=== PATIENT | female | born 1930 | race Caucasian/White ===

== ENCOUNTER 2016-11-08 19:15 | Inpatient (IN) | payer MEDICARE, OTHER ==
--- NOTE | ~2016-11-08 | CT71 ---
[facility] A Service of [facility] & [facility] RADIOLOGY TEXT RESULTS PATIENT: CONSTANTINE LOVE LOCATION: [facility] 312- : [birth year] UNIT #: [id number] AGE: [address]: Vinicio Ivy MD SEX: F ORDER DR: [id number] [facility] [address] [place], [place] [address] [id number] I MR#: [id number] Acc #: [id number] NAME: CONSTANTINE LOVE. : 1930 SEX: F STUDY DATE/TIME: 11/08/2016 18:48 [facility] ROOM: [facility] STUDY DESCRIPTION: CT Head Wo Contrast Attending Physician: Vinicio Ivy M.D. Ordering Physician: Matthew Ward M.D. Primary Care Physician: Anca Nichols M.D. MEDICAL IMAGING REPORT This report is preliminary unless electronic signature is present EXAM CT head 11/08/2016 HISTORY Fall 2 days ago. Tremors. Increasing since Tuesday. Patient did fall and hit right side of face. TECHNIQUE This CT examination was performed with one or more of the following radiation dose reduction techniques: automatic exposure control, adjustment of mA and/or kV according to patient size, and iterative reconstruction. FINDINGS CT head performed skull base through vertex without intravenous contrast. Comparison study 08/03/2015. The brainstem is unremarkable. The cerebellum and cerebral hemispheres show overall preservation of cardoso matter - white matter differentiation. There are moderately extensive subcortical periventricular and deep white matter tract hypodensities bilaterally most consistent with sequelae of chronic microvascular ischemia given patient age and statistics. More localized chronic white matter infarct in the anterior right perdue radiata. Stable. The midline structures are nondisplaced. The ventricles, cisterns and sulci are within normal limits of size and contour for a patient of this age. The basal ganglia show no acute abnormality. No intra- or extraaxial mass effect or abnormal intracranial fluid collection. The patient has cavernous carotid and distal vertebral arterial calcifications. Intraorbital soft tissues unremarkable. Visualized paranasal sinuses and mastoid air cells show mild mucosal thickening ethmoid air cells and right sphenoid sinus. No air-fluid levels to suggest acute sinusitis. No fracture. STS. [facility] A Service of [facility] & [facility] RADIOLOGY TEXT RESULTS PATIENT: CONSTANTINE LOVE LOCATION: [facility] 312-01 : [birth year] UNIT #: [id number] AGE: [address]: Vinicio Ivy MD SEX: F ORDER DR: IMPRESSION 1. No clearly acute abnormality is seen in the brain. If the patient has ongoing neurologic symptoms, consider follow up imaging, preferably with MRI if the patient is a candidate. 2. Periventricular deep white matter tract and subcortical hypodensities most consistent with sequelae of chronic microvascular ischemia based upon the patient's age and statistics. Similar appearance on prior study. More localized chronic white matter infarct in the anterior aspect right perdue radiata also stable. 3. Vascular calcifications. 4. Mild mucosal thickening in some ethmoid air cells and in right sphenoid sinus. No air-fluid levels to suggest acute sinusitis. Dictated by... Mario Bullock M.D. THIS IS AN ELECTRONICALLY VERIFIED REPORT Mario Bullock M.D. at 11/09/2016 5:43 PM IVELISSE/terrell TD: 11/09/2016 08:55 JOB #: [id number] MEDICAL IMAGING REPORT COPY
--- NOTE | ~2016-11-08 | CR181 ---
[facility] A Service of [facility] & [facility] RADIOLOGY TEXT RESULTS PATIENT: CONSTANTINE LOVE LOCATION: [facility] - : [birth year] UNIT #: [id number] AGE: [address]: Vinicio Ivy MD SEX: F ORDER DR: [id number] [facility] [address] [place], [place] [address] [id number] I MR#: [id number] Acc #: [id number] NAME: CONSTANTINE LOVE. : 1930 SEX: F STUDY DATE/TIME: 11/08/2016 19:58 UNIT: [address] ROOM: [facility] STUDY DESCRIPTION: CR Lumbar Spine 2 or 3 Views Attending Physician: Vinicio Ivy M.D. Ordering Physician: Ed Doctor [id number] [facility] Primary Care Physician: Anca Nichols M.D. MEDICAL IMAGING REPORT This report is preliminary unless electronic signature is present EXAM Lumbar spine 3 views HISTORY Low-back pain after a fall 2 days ago. FINDINGS Mild right upper lumbar and lower thoracic curve. Moderately severe chronic compression fractures of the T11 and T12 vertebral bodies with anterior wedging, stable compared to x-ray 08/02/2015. Mild multilevel degenerative disc space narrowing from L2-3 to L5-S1. [id number] multilevel degenerative and hypertrophic changes greater in the lower lumbar facet joints. IMPRESSION 1. No acute findings. Multilevel degenerative changes in the lumbar spine, greater in the lower lumbar facet joints. 2. Chronic anterior wedge compression fractures of T11 and T12 are stable compared to 08/02/2015. No acute finding. Dictated by... Shabbir Sandoval M.D. THIS IS AN ELECTRONICALLY VERIFIED REPORT Shabbir Sandoval M.D. at 11/09/2016 3:33 PM Lavon TD: 11/09/2016 09:28 JOB #: [id number] MEDICAL IMAGING REPORT COPY
--- NOTE | ~2016-11-08 | CR230 ---
[facility] A Service of [facility] RADIOLOGY TEXT RESULTS PATIENT: CONSTANTINE LOVE LOCATION: [facility] : [birth year] UNIT #: [id number] AGE: [address]: Vinicio Ivy MD SEX: F ORDER DR: [id number] [place] [address] [facility] [place], [place] [address] [id number] I MR#: [id number] Acc #: [id number] NAME: CONSTANTINE LOVE. : 1930 SEX: F STUDY DATE/TIME: 11/08/2016 19:52 UNIT: [address] ROOM: [facility] STUDY DESCRIPTION: CR Shoulder Min 2 View Rt Attending Physician: Vinicio Ivy M.D. Ordering Physician: Moi Carter M.D. Primary Care Physician: Anca Nichols M.D. MEDICAL IMAGING REPORT This report is preliminary unless electronic signature is present EXAM 3 views of the right shoulder. DATE 11/08/2016 HISTORY 85-year-old female with right shoulder and back pain mainly in the lower back after falling 2 days ago. COMPARISON None FINDINGS There is an obliquely oriented, nondisplaced fracture of the distal third of the right clavicle shaft. There is moderately advanced osteoarthritic change of the glenohumeral joint with joint space narrowing and what appears to be a calcified loose body at the inferior margin of the glenohumeral joint. No acromioclavicular or coracoclavicular separation is evident. Surgical clips are present within the right axilla. Imaged right ribs appear intact. IMPRESSION 1. Suspected nondisplaced fracture of the distal third of the right clavicle. 2. Moderately advanced osteoarthritic type change of the right shoulder joint with suspected small calcified loose body at the inferior margin of the joint space. [facility] A Service [facility] RADIOLOGY TEXT RESULTS PATIENT: CONSTANTINE LOVE LOCATION: [facility] : [birth year] UNIT #: [id number] AGE: [address]: Vinicio Ivy MD SEX: F ORDER DR: Dictated by... Aisha Kim M.D. THIS IS AN ELECTRONICALLY VERIFIED REPORT Aisha Kim M.D. at 11/09/2016 2:09 PM KARENA/karen TD: 11/09/2016 09:14 JOB #: [id number] MEDICAL IMAGING REPORT COPY
--- NOTE | ~2016-11-08 | HP ---
Unit #: [id number] #: [id number] Patient: CONSTANTINE LOVE [id number] [address] [place], [place] [address] [id number] I MR#: [id number] NAME: CONSTANTNIE LOVE. ROOM: 6[address]15 Age: 85 Sex: F Admission Date: 11/08/2016 : 1930 Attending Physician: Neena Morales M.D. Primary Care Physician: Anca Nichols M.D. HISTORY AND PHYSICAL CHIEF COMPLAINT Left leg cellulitis, fall with right clavicle fracture, hypocalcemia. HISTORY This 85-year-old female with CAD, PAF, dementia, chronic kidney disease, was transferred from the halfway for tremors, fall, and left leg pain. The patient fell at the halfway a couple of days ago complaining of increasing pain in the right clavicle. She has been dizzy recently, increasing shaking right arm. Currently is being treated for possible psoriasis of the distal left leg but has since developed increasing redness and more recently a fever. She presented to this emergency department where he distal left leg looks to be somewhat cellulitic. X-ray demonstrate a right clavicle fracture, which is nondisplaced. Labs are notable for a chronic kidney disease, and also hypocalcemia. I have asked that the CMP be recollected as the calcium was only 5.4 with an albumin of 2.6. In the ER she was given morphine, Zofran. She was noted to have a fever, and given a dose of IV clindamycin. Plans are to give calcium gluconate if calcium truly is low. PAST MEDICAL HISTORY 1. CAD with ejection fraction of 60%, mild MR, mild to moderate TR with moderate aortic stenosis and right ventricular systolic pressures of 30 to 40 mmHg. The patient is status post PCI and stent. She has a history of paroxysmal atrial fibrillation on amiodarone. 2. Chronic kidney disease with previous BUN of 33, creatinine of 2 on 07/2015. 3. Hypertension. 4. Previous CVA and TIA. 5. History of right vertebral artery stenosis. 6. Status post right mastectomy for breast cancer. 7. Hypothyroidism. 8. Dementia. 9. Anemia. 10. Essential tremor. 11. Frequent UTI. 12. Hysterectomy. 13. Appendectomy. 14. Thyroid surgery. 15. Cholecystectomy. 16. Tracheostomy in the past secondary to a hematoma while on Coumadin. ALLERGIES Codeine. Unit #: [id number] #: [id number] Patient: CONSTANTINE LOVE RESIDENTIAL MEDICATIONS B12 1,000 mcg daily; Nakita-Colace 8.6/5 two tablets q. a.m.; micro-K 10 mEq daily; aspirin 81 mg daily; Lasix 20 mg daily; Imdur 60 mg daily; amiodarone 100 mg daily; Plavix 75 mg daily; Protonix 40 mg daily; MiraLAX daily; Bumex 0.5 mg daily; Aricept 10 mg daily; Zoloft 50 mg daily; Synthroid 0.1 mg daily; Namenda 10 mg b.i.d.; Ocuvite b.i.d.; Lopressor 25 mg t.i.d.; Dilaudid 1 mg 4 times a day and p.r.n.; melatonin 3 mg q.h.s.; nitroglycerin p.r.n.; Zofran 4 mg t.i.d. p.r.n.; Tylenol p.r.n.; Dilaudid; MOM; Antivert; Remeron 15 mg q.h.s. FAMILY HISTORY Noncontributory given patient's age. SOCIAL HISTORY The patient lives at halfway under the care of Dr. Benavides. Stopped smoking 35 years ago and does not drink alcohol. REVIEW OF SYSTEMS Difficult to obtain as patient herself is a poor historian due to dementia. PHYSICAL EXAMINATION GENERAL: 85-year-old pleasantly confused, mildly obese female who looks to be somewhat uncomfortable. VITAL SIGNS: Temperature 98.6, pulse 89, respirations 14, blood pressure 163/60, O2 saturation 97% on room air. HEENT: Eyes - PERRLA. Extraocular muscles are intact. Pharynx is benign. Bruise over the right face. NECK: Supple without adenopathy or thyromegaly. CHEST: Clear. CARDIAC: Normal S1 and S2 with a soft systolic murmur best heard at the upper sternal border. ABDOMEN: Bowel sounds are present. No hepatosplenomegaly, tenderness, or masses. EXTREMITIES: Notable for peeling of the skin over the distal left lower extremity and foot with erythema and some swelling of the distal left lower extremity and foot. There is pain with movement of the right shoulder. NEUROLOGIC: Patient is pleasantly confused. Her cranial nerves are intact. She has equal strength throughout but is very weak on exam and needs help just to turn over. She does have essential and rest tremor worse on the right. DIAGNOSTIC STUDIES ADMISSION LABS: Hematocrit is 26.2 down from 34.5 two years ago, normal white count and platelet count. SMA 12 - glucose 160, BUN 46, creatinine 2.3, up from a BUN of 33, creatinine of 2 two years ago, calcium is 5.4 with an albumin of 2.6, this currently is being rechecked. AST is 60, alk phos 124, lactic acid is normal. I have asked for a magnesium level to also be drawn. Urinalysis - 2-5 red cells, 5-10 white cells, 4+ bacteria, 1+ leukocyte esterase. CARDIOLOGY STUDIES: EKG - paced rhythm rate 78. IMAGING STUDIES: Head CT - no acute disease, small vessel ischemic disease noted, stable right-sided infarct. Unit #: [id number] #: [id number] Patient: CONSTANTINE LOVE X-rays of the right shoulder show a nondisplaced right clavicle fracture, DJD of the right shoulder. X-rays of the lumbar spine and T-spine, no acute disease, old compression fractures, which are stable noted. ASSESSMENT 1. Probable left lower extremity cellulitis. 2. Fall with right clavicle fracture. 3. Possible hypocalcemia, again I am awaiting repeat labs. 4. Chronic kidney disease. 5. CAD with normal LV function, status post PCI and stents, status post permanent pacemaker for sick sinus syndrome on amiodarone. 6. Hypertension. 7. Prior CVA and TIA. 8. Right mastectomy for breast cancer. 9. Hypothyroidism. 10. Dementia. 11. Essential and rest tremor particularly on the right. 12. Anemia with MCV borderline low at 82.1. 13. Generalized pruritus on Dilaudid. PLANS 1. Recheck labs, compare if calcemia truly is low, will go ahead and supplement. I have asked for a magnesium level to also be drawn. Will workup further depending on above. 2. Sling and swath. 3. Plan TSH and free T4. 4. Change Dilaudid to oxycodone given pruritus and will order some low dose morphine p.r.n. 5. Unasyn and Bactroban ointment. Will ask wound nurse to see in the morning. 6. DVT prophylaxis and obtain Doppler of the lower extremities. 7. Patient is a DNR per her halfway papers. 8. Obtain thyroid function test. Dictated by Lalo Plaza/erasmo TD: 11/09/2016 05:47 JOB #: [id number] CC: Tyrell Benavides M.D. HISTORY AND PHYSICAL X Neena Morales MD HISTORY AND PHYSICAL
--- NOTE | ~2016-11-08 | EKG ---
PATIENT: CONSTANTINE LOVE UNIT #: [id number] Ventricular Rate: 78 BPM Atrial Rate: 78 BPM P-R Interval: 200 ms QRS Duration: 118 ms Q-T Interval: 422 ms QTC Calculation(Bezet): 481 ms P [place]: 76 degrees Calculated R [place]: -21 degrees Calculated T [place]: 7 degrees Diagnosis Line: Atrial-paced rhythm Diagnosis Line: Incomplete right bundle branch block Diagnosis Line: Abnormal ECG Diagnosis Line: When compared with ECG of 02-AUG-2015 11:52, Diagnosis Line: Incomplete right bundle branch block has replaced Diagnosis Line: Right bundle branch block Diagnosis Line: Confirmed by VIRGINIA GARCIA MD ([id number]) on Diagnosis Line: 11/09/2016 4:12:18 PM INTERPRETING MD: RADHA GONZÁLES
--- NOTE | ~2016-11-08 | CR243 ---
[facility] A Service of [facility] RADIOLOGY TEXT RESULTS PATIENT: CONSTANTINE LOVE LOCATION: [facility] 312- : [birth year] UNIT #: [id number] AGE: [address]: Vinicio Ivy MD SEX: F ORDER DR: [id number] [facility] [address] [place], [place] [address] [id number] I MR#: [id number] Acc #: [id number] NAME: CONSTANTINE LOVE. : 1930 SEX: F STUDY DATE/TIME: 11/08/2016 19:54 UNIT: [address] ROOM: [facility] STUDY DESCRIPTION: CR Thoracic Spine 3 Views Attending Physician: Vinicio Ivy M.D. Ordering Physician: Ed Doctor [id number] [facility] Primary Care Physician: Anca Nichols M.D. MEDICAL IMAGING REPORT This report is preliminary unless electronic signature is present EXAM 3 view of the thoracic spine, 11/08/2016 HISTORY 85-year-old female complains of right shoulder and back pain after falling 2 days ago. COMPARISON Thoracic spine radiographs, 08/02/2015 FINDINGS Chronic-appearing compression deformities of T11 and T12, mild compression deformities superior endplate of T4, unchanged from 08/02/2015. Advanced osteopenic changes limit sensitivity for detection of subtle nondisplaced fracture. However, no acute displaced fracture is identified. No subluxation. Calcification within the thoracic aorta. IMPRESSION 1. Chronic-appearing compression deformities of T4, T11 and T12. No acute thoracic spine fracture or subluxation. 2. Advanced osteopenia. Dictated by... Aisha Kim M.D. THIS IS AN ELECTRONICALLY VERIFIED REPORT Aisha Kim M.D. at 11/09/2016 2:09 PM Christiane TD: 11/09/2016 09:13 JOB #: [id number] MEDICAL IMAGING REPORT [facility] A Service [facility] RADIOLOGY TEXT RESULTS PATIENT: CONSTANTINE LOVE LOCATION: [facility] 312-01 : [birth year] UNIT #: [id number] AGE: [address]: Vinicio Ivy MD SEX: F ORDER DR: COPY
--- NOTE | ~2016-11-08 | TOC ---
Unit #: [id number] #: [id number] Patient: CONSTANTINE LOVE [id number] [address] [address] [id number] I MR#: [id number] NAME: CONSTANTINE LOVE. ROOM: 312 Age: 85 Sex: F Admission Date: 11/08/2016 : 1930 Attending Physician: Vinicio Ivy M.D. Primary Care Physician: Anca Nichols M.D. TRANSFER OF CARE SUMMARY WORKING DIAGNOSES 1. Right clavicle fracture following a fall. 2. Lower extremity cellulitis. 3. Urinary tract infection with Gram negative dominga Klebsiella, sensitive to Levaquin. The other organism sensitivity identification is still pending. 4. Hypocalcemia. Replaced. Rechecking. 5. Metabolic acidosis. 6. Acute on chronic stage 3 kidney injury. Possibly following the fall. She does have elevated CPK of greater than 2000. 7. History of coronary artery disease. 8. History of sick sinus syndrome. 9. Iron deficiency anemia. 10. Breast cancer. 11. Hypothyroidism. 12. Generalized pruritus. 13. DNR/DNI code status. PROCEDURES PERFORMED None. DIAGNOSTIC DATA IMAGING: CT of the head on 11/08/2016 with impression of no clearly acute abnormality seen in the brain. Periventricular deep white matter tract and subcortical hypodensities most consistent with sequelae of chronic microvascular ischemia based upon the patient's age and statistics. Similar appearance on prior study. More localized chronic white matter infarct in the anterior aspect right perdue radiata also stable. Vascular calcifications. Mild mucosal thickening in some ethmoid air cells and in right sphenoid sinus. No air-fluid levels to suggest acute sinusitis. X-ray of the shoulder with findings suspected nondisplaced fracture of the distal third of the right clavicle. Moderately advanced osteoarthritic type change of the right shoulder joint with suspected small calcified loose body at the inferior margin of the joint space. X-ray of thoracic spine, impression of chronic-appearing compression deformities of T4, T11 and T12. No acute thoracic spine fracture or subluxation. Advanced osteopenia. X-ray of lumbar spine, 2 views, no acute findings. Multilevel degenerative changes in the lumbar spine, greater in the lower lumbar facet joints. Chronic anterior wedge compression fractures of T11 and T12 are stable compared to 08/02/2015. Unit #: [id number] #: [id number] Patient: CONSTANTINE LOVE Ultrasound of the lower extremities, impression of negative examination. No evidence of bilateral lower extremity deep venous thrombosis. Chest x-ray on 11/11/2016 with impression of no acute cardiopulmonary findings or significant interval change. LABORATORY: Today's labs include BMP with glucose 141, BUN 51, creatinine 3.1, sodium 130, potassium 4.0, chloride 103, CO2 21, calcium 6.1, magnesium 2.1. Total protein 5.6, albumin 2.1, total bilirubin 0.3. CBC with white blood cell count 8.4, RBC 2.75, hemoglobin 7.2, hematocrit 22.9, MCV 83.3, MCH 26.1, MCHC 31.3, RDW 17.2, platelets 291, MPV 8.8. HOSPITAL COURSE The patient is an 85-year-old female with a past medical history of coronary artery disease, paroxysmal atrial fibrillation, dementia and chronic kidney disease. She was transferred from [facility] due to tremors, fall and left leg pain. The patient fell at the [facility] a couple of days ago and has complained of increasing pain of the right clavicle. She had been dizzy recently and has had increasing shaking of the right arm. Currently she is being treated for possible psoriasis of the distal left leg, but has developed increasing redness and more recently fever. She was brought to the emergency department where the distal left leg looks to be somewhat cellulitic. X-ray demonstrated a right clavicle fracture which is nondisplaced. Labs are notable for chronic kidney disease and also hypocalcemia. She was admitted for pain control and for treatment of the left lower leg cellulitis. She was started on antibiotics with Unasyn, both for the left lower leg cellulitis and also urinary tract infection. Urinalysis was done and to date urine culture is present with Klebsiella and a second organism of Gram negative rods. The Klebsiella is sensitive to Levaquin, but the second gram negative dominga identification and sensitivity is still pending. The patient is stable with regard to the infection of the urinary tract infection and cellulitis. The lower extremity cellulitis has done very well. The redness has resolved and we are continuing with wound care at this time. She has no evidence of elevated white blood count, nor does she have a fever. At this time, throughout the course of her hospitalization, we have noticed that the patient is becoming more acidotic and she also has severe hypocalcemia. We are replacing the calcium both orally and through IV. We are checking for parathyroid hormone level. At this time it has been sent out and the results are still pending. As she becomes more and more acidotic, we have also noted some increase rise in her creatinine. Nephrology was asked to see her in consultation. When assessed, her CPK was much elevated at 2300. We will follow nephrology's lead in correcting this patient's acute kidney injury. Once that is stable she may be transferred back to [facility] under the care of Dr. Benavides to continue with her stay there for clarification. When I reviewed the patient's record from [facility], it was stated that the patient does have a do not intubate and do not resuscitate code status, which her son has confirmed. Her son is Vu Antonio, who is her [id number]. He has confirmed this, although there were also records that show the patient is under powerless care there. When I asked Mr. Antonio about this, he tells me that two years ago that was the wish at that time, but at this time he does wish the patient be continued full aggressive care, but if the patient does become septic or have any respiratory or cardiac arrest we will take no <__IM_1: __> (1)__10:13 and let her pass away from a natural . Unit #: [id number] #: [id number] Patient: CONSTANTINE LOVE CURRENT MEDICATIONS 1. Vitamin D 2000 units p.o. daily. 2. Combivent nebulized q.i.d. 3. Food with sodium bicarbonate per nephrology recommendations. 4. Calcitrol 0.25 mcg p.o. daily. 5. Remeron 50 mg p.o. at bedtime. 6. Melatonin 3 mg p.o. at bedtime. 7. Calcium plus D 500 mg p.o. t.i.d. 8. Multivitamin 1 tablet p.o. daily. 9. Aricept 10 mg p.o. daily. 10. Protonix 40 mg p.o. daily. 11. Plavix 75 mg p.o. 12. Cordarone <__IM_2: __> (2)_11:22 daily. 13. Imdur 60 mg p.o. daily. 14. Aspirin 81 mg p.o. daily. 15. Vitamin B12 1000 mcg p.o. daily. 16. Namenda 10 mg p.o. daily. 17. Zoloft 50 mg p.o. in the morning. 18. Senokot 1 tablet p.o. daily. 19. Florastor 250 mg p.o. b.i.d. 20. Bactroban cream to the left leg applied topically b.i.d. 21. Lopressor 25 mg p.o. t.i.d. 22. Synthroid 0.1 mg p.o. daily. 23. Meclizine 25 mg p.o. p.r.n. dizziness. 24. Milk of Magnesia p.r.n. daily. 25. Tylenol 500 mg q.6 h. p.r.n. fever or pain. 26. Nitroglycerin 0.4 mg sublingually p.r.n. chest pain. 27. MiraLAX 17 mg p.o. daily. 28. Lovenox subcutaneous prophylactically 30 mg p.o. daily. 29. Morphine 2 mg IV q.6 h. p.r.n. severe pain. 30. Hydroxyzine 10 mg p.o. t.i.d. 31. Zofran 4 mg IV q.6 h. p.r.n. nausea or vomiting. 32. Roxicodone 10 mg p.o. b.i.d. 33. Vitamin D 50,000 units p.o. daily for 3 doses. Due to her acute kidney injury I have discontinued the Bumex and I will discontinue the potassium. Dictated by... Eh Petty PA-C for Lalo Juárez TD: 11/12/2016 15:23 JOB #: [id number] TRANSFER OF CARE SUMMARY X X TRANSFER OF CARE SUMMARY
--- NOTE | ~2016-11-08 | CR72 ---
[facility] A Service [facility] RADIOLOGY TEXT RESULTS PATIENT: CONSTANTINE LOVE LOCATION: [facility] : [birth year] UNIT #: [id number] AGE: [address]: Vinicio Ivy MD SEX: F ORDER DR: [id number] [place] [id number] [facility] [place], [place] [address] [id number] I MR#: [id number] Acc #: [id number] NAME: CONSTANTINE LOVE. : 1930 SEX: F STUDY DATE/TIME: 11/11/2016 14:55 UNIT: [address] ROOM: [facility] STUDY DESCRIPTION: CR Chest Single View Portable Attending Physician: Vinicio Ivy M.D. Ordering Physician: Vinicio Ivy M.D. Primary Care Physician: Anca Nichols M.D. MEDICAL IMAGING REPORT This report is preliminary unless electronic signature is present INDICATIONS Shortness of air for 1 day. Hypertension. EXAM Single portable AP view of the chest. DATE OF EXAM 11/11/2016 COMPARISON Compared to 08/03/2015. FINDINGS Heart and mediastinal contours are unchanged. Patient has a dual lead cardiac pacemaker over the left chest wall. There is background COPD. No pleural effusion. There is a distal right clavicle fracture as noted on the 11/08/2016 comparison. IMPRESSION No acute cardiopulmonary findings or significant interval change. Dictated by... Owen Verduzco M.D. THIS IS AN ELECTRONICALLY VERIFIED REPORT Owen Verduzco M.D. at 11/12/2016 11:13 AM NITIN/angel TD: 11/11/2016 18:37 JOB #: [id number] [facility] A Service of [facility] RADIOLOGY TEXT RESULTS PATIENT: CONSTANTINE LOVE LOCATION: [facility] : [birth year] UNIT #: [id number] AGE: [address]: Vinicio Ivy MD SEX: F ORDER DR: MEDICAL IMAGING REPORT COPY
--- NOTE | ~2016-11-08 | CO ---
Unit #: [id number] #: [id number] Patient: CONSTANTINE LOVE [id number] [address] [place], [place] [address] [id number] I MR#: [id number] NAME: CONSTANTINE LOVE. ROOM: 312 Age: 86 Sex: F Admission Date: 11/08/2016 : 1930 Attending Physician: Viral Whitfield M.D. Primary Care Physician: Anca Nichols M.D. CONSULTATION REPORT REASON FOR CONSULTATION Elevated creatinine level. HISTORY OF PRESENT ILLNESS Patient is an 84-year-old white female with known history of coronary artery disease, aortic stenosis and a baseline creatinine off 2.5, CKD 4, not to be on dialysis. The patient also has had a low calcium level of 6.1. We were asked to see the patient. Patient also noted to have fall with right clavicle fracture. Intact PTH is not currently available. The patient also had low hemoglobin and hematocrit for which EGD was done without any noted without any bleeding. Patient admitted for nondisplaced right clavicle fracture. The calcium on admission 5.4 with an albumin of 2.6. PAST MEDICAL HISTORY Past medical history is significant for: 1. Coronary artery disease, ejection fraction of 60%. 2. Mild mitral regurgitation. 3. Chronic kidney disease stage 3 to 4 with a baseline creatinine 2 to 2.5. 4. History of hypertension. 5. History of CVA. 6. History of right vertebral stenosis. 7. Status post right mastectomy. 8. History of hypothyroidism. 9. Anemia. PAST SURGICAL HISTORY Past surgical history is significant for: 1. Hysterectomy. 2. Appendectomy. 3. Thyroid surgery. 4. Cholecystectomy. FAMILY HISTORY The family history is unremarkable for ESRD. ALLERGIES Codeine. HOME MEDICATIONS Home medications include: 1. Lasix 20 mg daily. Unit #: [id number] #: [id number] Patient: CONSTANTINE LOVE 2. Aspirin 81 mg daily. 3. Amiodarone 100 mg daily. 4. Protonix 40 mg daily. 5. Bumex 0.5 mg daily. 6. Aricept 10 mg daily. 7. Zoloft 50 mg daily. 8. Synthroid 0.1 mg daily. 9. Namenda 10 mg b.i.d. 10. Lopressor 25 mg t.i.d. 11. Melatonin. SOCIAL HISTORY Patient is a [place] resident, quit smoking 35 years ago, does not drink. REVIEW OF SYSTEMS CARDIOVASCULAR: No chest pain. RESPIRATORY: No cough or expectoration. GASTROINTESTINAL: No diarrhea. No vomiting. PHYSICAL EXAMINATION VITAL SIGNS: Patient on examination temperature is 98.6, heart rate 89 per minute, blood pressure 163/60. HEENT: Head atraumatic. Extraocular movements intact. Sclerae are anicteric. NECK: Supple. There is no elevation of JVD. CHEST: Clear. HEART: S1, S2 audible. No S3. No S4. With a 3/6 systolic murmur at aortic area. ABDOMEN: Abdomen is soft. There is no organomegaly. No guarding. No rigidity. No rebound tenderness. EXTREMITIES: There is no edema. CLASSROOM TEACHER: Exam is intact. Cerebellar system is intact. DIAGNOSTIC STUDIES LABORATORY: Glucose 160, BUN 46, creatinine 2.3, sodium 140, potassium 4, chloride 102, CO2 21, calcium 5.4, total bilirubin 0.2. IMPRESSION 1. Hypocalcemia, possible hypoparathyroidism: Check the intact PTH. Supplement calcium. Check vitamin D for possible vitamin D deficiency. 2. No clinical sequelae of hypocalcemia. 3. Acute kidney injury, likely hemodynamic related increase. 4. Chronic kidney disease 4: No acute need for dialysis. 5. Right clavicle fracture: Follow the patient. Dictated by... Roni Looney M.D. RA/sharlene TD: 12/02/2016 23:00 JOB #: [id number] Unit #: [id number] #: [id number] Patient: CONSTANTINE LOVE CONSULTATION REPORT Page 1 of 1 X Roni Looney MD CONSULTATION REPORT
--- NOTE | ~2016-11-08 | DS ---
Unit #: [id number] #: [id number] Patient: CONSTANTINE LOVE [id number] [address] [place], [place] [address] [id number] I MR#: [id number] NAME: CONSTANTINE LOVE. ROOM: 312 Age: 85 Sex: F Admission Date: 11/08/2016 : 1930 Discharge Date: 11/16/2016 Attending Physician: Viral Whitfield M.D. Primary Care Physician: Anca Nichols M.D. DISCHARGE SUMMARY ADDENDUM HOSPITAL COURSE This is a continuation of transfer of care that was dictated on November 12, 2016. Since the time of dictation, the patient has developed anemia. There was concern for GI bleed since her Hemoccult stool was positive. Dr. Martines of gastroenterology was consulted who had done an upper endoscopy with finding that the patient had a normal esophagus, normal duodenal bulb in descending duodenum, mild diffuse gastritis. Biopsy was taken. For her anemia, the patient did have blood transfusion and received a total of 1 unit of packed red blood cells on November 13. At this time the patient's hemoglobin is 9.7, hematocrit 31.6. The patient is stable. Her lowest hemoglobin was 6.6. Since that time the patient has had much improvement in her kidney function after her home diuretics of Lasix and Bumex were held and she had received IV fluid hydration per nephrology's guidance. At this time, with regard to her hypocalcemia, PTH did come back, which was normal. Per nephrology's recommendation, we will discontinue calcitriol, and she can have her vitamin level assessed at the [facility], and we will continue with calcium supplement. With regard to her wound care for her lower extremity, she can have cleansing of the bilateral lower extremities with foam cleanser twice daily, apply clobetasol and Bactroban mixture to left lower extremity from toes to knees twice daily. Apply Hydrofera Blue Ready cut to fit to the dark scabbed area on the left lower extremity q.72 hours and may use the Hydrofera Blue Ready for up to 72 hours or if heavily soiled or too moist, may change. Apply Kerlix to secure the dressing. With regard to her Levaquin, it is recommended that the patient be treated for Levaquin for the 2 urine cultures and her urine, which were Klebsiella and Proteus, both sensitive to Levaquin. She can have this until the . At this time, I believe that the patient has reached her maximum hospital benefit, and she can be discharged back to [facility] with continued physical and occupational therapy, as well as wound care. DISCHARGE CONDITION Unit #: [id number] #: [id number] Patient: CONSTANTINE LOVE Stable. DISCHARGE DISPOSITION The patient may be discharged back to [facility] with continued physical and occupational therapy. DISCHARGE MEDICATIONS 1. Albuterol with Combivent inhaled t.i.d. and as needed for shortness of breath. 2. Tylenol 500 mg orally q.6 hours for mild pain. 3. Magnesium oxide 500 mg orally daily as needed for constipation. 4. Clobetasol and Bactroban applied twice daily to the left lower extremity. 5. Amiodarone 100 mg orally daily. 6. Remeron 15 mg every evening. 7. Sertraline 50 mg orally every morning. 8. Meclizine 25 mg orally t.i.d. as needed for dizziness. 9. Zofran 4 mg sublingually every 8 hours as needed for nausea. 10. Hydroxyzine 10 mg orally t.i.d. as needed for pruritus. 11. Metoprolol 25 mg orally t.i.d. 12. Milk of Magnesia 30 mL orally daily as needed for constipation. 13. MiraLAX 17 mg orally daily as needed for constipation. 14. Senokot 2 tablets every morning as needed for constipation. 15. Namenda 10 mg orally b.i.d. 16. Aricept 10 mg orally daily. 17. Stop Bumex. 18. Stop Lasix. 19. Florastor 250 mg orally b.i.d. 20. Ocuvite 1 tablet orally daily. 21. Multivitamin 1 tablet orally daily. 22. Stop Melatonin. 23. Aspirin 81 mg orally daily. 24. She can have her oxycodone 10 mg every 8 hours as needed for pain. 25. Plavix 75 mg orally daily. 26. Protonix 40 mg orally b.i.d. 27. Calcium plus D 500 mg orally b.i.d. 28. She can stop potassium. 29. Levothyroxine 100 mcg orally daily. 30. Imdur 60 mg orally daily. 31. Nitroglycerin sublingual 0.4 mg as needed for chest pain. 32. Vitamin B12 - 1,000 mcg orally daily. NOTE: A prescription for Roxicodone was given. Dictated by... Eh Petty PA-C for Lalo Moreno/geno TD: 11/16/2016 14:50 JOB #: [id number] Unit #: [id number] #: [id number] Patient: CONSTANTINE LOVE DISCHARGE SUMMARY X X DISCHARGE SUMMARY
--- NOTE | ~2016-11-08 | CO ---
Unit #: [id number] #: [id number] Patient: CONSTANTINE LOVE [id number] [address] [address] [id number] I MR#: [id number] NAME: CONSTANTINE LOVE. ROOM: 312 Age: 85 Sex: F Admission Date: 11/08/2016 : 1930 Attending Physician: Vinicio Ivy M.D. Primary Care Physician: Anca Nichols M.D. CONSULTATION REPORT REASON FOR CONSULTATION Severe anemia. HISTORY OF PRESENT ILLNESS The patient was actually transferred here from the [facility] status post fall with a right clavicle fracture. Upon workup, she was found to be severely anemic with a hemoglobin of 6.6 this morning and was heme-positive. PAST MEDICAL HISTORY 1. Coronary artery disease, status post stent with PCI placement, on chronic Plavix. 2. Atrial fibrillation. 3. Chronic kidney disease. 4. Hypertension. 5. Previous CVA and TIA. 6. Right vertebral artery stenosis. 7. Status post right mastectomy for breast cancer. 8. Hypothyroidism. 9. Dementia. 10. Anemia. 11. Essential tremor. 12. Frequent UTIs. 13. Hysterectomy. 14. Appendectomy. 15. Thyroid surgery. 16. Cholecystectomy. 17. Tracheostomy due to a large hematoma while on Coumadin. ALLERGIES Codeine. HOME MEDICATIONS B12, Nakita-Colace, Micro-K, aspirin, Lasix, Imdur, amiodarone, Plavix, Protonix, MiraLAX, Bumex, Aricept, Zoloft, Synthroid, Namenda, Ocuvite, Lopressor, Dilaudid as needed, melatonin, nitroglycerin, Zofran, Tylenol, Antivert, Remeron, milk of magnesia. FAMILY HISTORY Noncontributory secondary to patient's age. SOCIAL HISTORY The patient lives in a [facility]. Reformed smoker. Denies alcohol or illicit drugs. Unit #: [id number] #: [id number] Patient: CONSTANTINE LOVE REVIEW OF SYSTEMS Quite difficult to obtain secondary to patient's mental status and dementia. PHYSICAL EXAMINATION GENERAL: The patient is somewhat lethargic 85-year-old female, who is in no acute distress. VITAL SIGNS: Temperature is 98.5, pulse is 96, respirations 18, blood pressure is 108/47. HEENT: PERRLA. NECK: Supple. CARDIAC: S1 and S2. LUNGS: Clear to auscultation. ABDOMEN: Soft, rounded, nontender and nondistended. Positive bowel sounds. NEUROLOGIC: The patient is somewhat lethargic, but arouses easily. DIAGNOSTIC STUDIES LABORATORY RESULTS: BUN and creatinine 55 and 3.2 respectively. Sodium is 131. White count 9.1, hemoglobin 6.6, hematocrit 21.1, and platelets are 300. ASSESSMENT AND PLAN 1. Severe anemia. Iron transfusions have been ordered as well as 2 units of packed cells. Continue to monitor H and H. Transfuse if needed. We will plan for an esophagogastroduodenoscopy in the morning to rule out peptic ulcer versus arteriovenous malformations versus others. The patient is a poor candidate for colonoscopy due to age, mental status, and multiple comorbidities. We will continue to monitor post esophagogastroduodenoscopy. 2. Chronic kidney disease. 3. Status post fall with a right clavicle fracture. 4. Dementia. Thank you for this interesting consult. We will continue to follow along. Dictated by... Fidencio LeivaPBiggRAlmaz. for Vinh Martines M.D. MARTIN/kenny TD: 11/13/2016 19:00 JOB #: [id number] CONSULTATION REPORT X X CONSULTATION REPORT
--- NOTE | ~2016-11-08 | OR ---
Unit #: [id number] #: [id number] Patient: CONSTANTINE LOVE [id number] [address] [address] [id number] I MR#: [id number] NAME: CONSTANTINE LOVE ROOM: 312 Date of Procedure: 11/15/2016 Admission Date: 11/08/2016 Surgeon: Vinh Martines M.D. : 1930 Attending Physician: Viral Whitfield M.D. Primary Care Physician: Anca Nichols M.D. OPERATIVE REPORT PROCEDURE PERFORMED Esophagogastroduodenoscopy with biopsy. INDICATIONS FOR PROCEDURE The patient with severe anemia, Hemoccult-positive stool, undergoing evaluation with upper endoscopy. MEDICATIONS Monitored anesthesia. POSTOPERATIVE FINDINGS 1. Normal esophagus. 2. Normal duodenal bulb and descending duodenum. 3. Mild diffuse gastritis, biopsies taken. PLAN The patient will need colonoscopy for further evaluation. DESCRIPTION OF PROCEDURE The patient was explained of the procedure, risks, and benefits along with risks and benefits of anesthesia. She was brought to the endoscopy room. Propofol anesthesia was given. Bite block was placed. The scope was passed down the mouth into the esophagus, stomach, duodenum, and distal duodenum. Findings as described. Biopsies taken. Gently, I pulled the scope out of the patient's mouth. She tolerated it well. Dictated by... Lalo Boles/kenny TD: 11/15/2016 22:17 JOB #: [id number] Unit #: [id number] #: [id number] Patient: CONSTANTINE LOVE OPERATIVE REPORT X Vinh Martines MD X PROCEDURE OPERATIVE NOTE
--- NOTE | ~2016-11-08 | US84 ---
[address] [facility] [address] [place], [place] [address] [id number] I MR#: [id number] Acc #: [id number] NAME: CONSTANTINE LOVE : 1930 SEX: F STUDY DATE/TIME: 11/09/2016 9:28 UNIT: C3A PCU ROOM: 312 STUDY DESCRIPTION: US LE Veins Complete Waylon Stdy Attending Physician: Vinicio Ivy M.D. Ordering Physician: Neena Morales M.D. Primary Care Physician: Anca Nichols M.D. MEDICAL IMAGING REPORT This report is preliminary unless electronic signature is present EXAM Bilateral lower extremity venous duplex, 11/09/2016 HISTORY Bilateral lower extremity pain for 3 months. Evaluate for deep vein thrombosis. TECHNIQUE Venous ultrasound examination of both lower extremities was performed using grayscale, spectral Doppler and color flow Doppler imaging. FINDINGS The examination is negative. There is no evidence of deep venous thrombus from the groin to the lower calf bilaterally. Visualized greater saphenous veins are also patent. IMPRESSION Negative examination. No evidence of bilateral lower extremity deep venous thrombosis. Dictated by... Alfredito Eastman M.D. THIS IS AN ELECTRONICALLY VERIFIED REPORT Alfredito Eastman M.D. at 11/10/2016 2:22 PM TEE/joanna TD: 11/09/2016 13:19 JOB #: [id number] MEDICAL IMAGING REPORT COPY
[2016-11-08 19:00] LABS: BASOPHIL# 0.1 X10e3 (0-0.3); DIFF IND NO; EOSINOPHIL# 0.2 X10e3 (0-0.7); EOSINOPHIL% 1.4 % (0.0-7.0); HEMATOCRIT 26.2 % (35.0-45.0); HEMOGLOBIN 8.4 gm/dL (12.0-16.0); LYMPHOCYTE# 0.9 X10e3 (1.0-3.5); LYMPHOCYTE% 8.8 % (17.0-45.0); MEAN CELL VOLUME 82.1 FL (83-96); MEAN CORPUSCULAR HEMOGLOBIN 26.2 PG (28-34); MEAN CORPUSCULAR HGB CONC 31.8 g/dL (30-36); MEAN PLATELET VOLUME 9.1 FL (6.5-11.5); MONOCYTE# 0.8 X10e3 (0-1.0); MONOCYTE% 7.3 % (3.0-12.0); NEUTROPHIL# 8.5 X10e3 (1.5-7.1); NEUTROPHIL% 81.5 % (40-75); PLATELET COUNT 288 X10e3 (140-420); RED BLOOD COUNT 3.19 X10e (3.90-5.30); RED CELL DISTRIBUTION WIDTH 17.1 % (11.0-15.5); WHITE BLOOD COUNT 10.5 X10e3 (4.0-10.5)
[~2016-11-08 19:15] MED LIST: ACETAMINOPHEN PO; ACETAMINOPHEN650 M1 PO; ALPRAZOLAM PO; ALPRAZOLAM0.25 MG PO; AMIODARONE HCL100 MG PO; AMLODIPINE BESYL5 MG PO; ASPIR-TRIN325 MG PO; ASPIRIN81 M1 PO; AZELASTINE137 MCG/0. NS; B-121000 MC1 PO; BACTROBAN22 GM TP; BENZONATATE PO; BUMEX PO; CALCIUM 600 +1 EAC3 PO; CALCIUM ACETAT667 M1 PO; CALPHRON667 MG PO; CALTRATE-600/VI1 TA1 PO; CARBIDOPA-LEVO1 EAC9 PO; CARBIDOPA-LEVO1 EACH PO; CARBIDOPA-LEVO1 TAB PO; CLOBETASOL 0.0560 GM TOP; CLOBEX59 M1 TP; CLOPIDOGREL75 MG PO; CORDARONE200 M1 PO; CYANOCOBALAM1000 MCG PO; EVISTA60 M1 PO; FERRO-TIME325 MG PO; FLEXERIL10 MG PO; FLUOCINONIDE TP; FOLIC ACID PO; GAVILAX17 GM PO; GUAIFENESIN W/CO5 ML PO; HUGO TRANSPORT1 PKT MC; HYDROCODON-ACE1 EAC1 PO; HYDROCODON-ACE1 EAC9 PO; HYDROCODONE-APA1 T45 PO; IMDUR-ER30 M1 PO; IMDUR-ER60 M1 DOB; IMDUR30 MG PO; KEFLEX500 M1 PO; KETOCONAZOLE TOP; KETOCONAZOLE15 GM TP; LASIX PO; LASIX20 MG PO; LEVAQUIN PO; LEVOTHYROXINE100 MC1 PO; LEVOTHYROXINE100 MCG PO; LEVOTHYROXINE75 MCG PO; LEXAPRO PO; LOPRESSOR PO; LYRICA75 MG PO; METHOTREXATE2.5 MG; METHOTREXATE2.5 MG PO; METOPROLOL TAR25 MG PO; METOPROLOL TART25 MG PO; MIRALAX17 GM PO; NAMENDA10 MG PO; NAMENDA5 MG PO; NIFEREX-150 CAP1 CAP PO; NITROGLYCERIN0.4 MG PO; NITROGLYGERIN0.4 MG SL; NITROSTAT0.4 MG SL; NIZORAL 2% CREA15 GM EXT; NORCO 7.5-3251 EACH PO; PACERONE PO; PERCOCET 5-3251 TAB PO; PHOSLO667 MG PO; PLAVIX PO; POTASSIUM CHLO10 MEQ PO; PRADAXA75 MG PO; PREDNISONE10 MG PO; REMERON15 MG PO; SIMVASTATIN10 MG PO; SINEMET 10-1001 EACH PO; SINEMET 25-2501 EACH PO; SYNTHROID75 MCG PO; TEMOVATE 0.05%15 G1 EXT; TESSALON PERLE100 M1 PO; TIROSINT100 MCG PO; TYLENOL325 M1 PO; ULTRAM PO; VITAMIN B-121000 MCG PO; XANAX0.5 MG PO; ZESTRIL2.5 M1 PO; ZESTRIL2.5 MG PO; ZOCOR20 MG PO; ZOFRAN ODT4 MG PO; ZOFRAN PO
[2016-11-08 19:40] LABS: ALBUMIN SERUM 2.6 g/dL (3.5-5.0); BILIRUBIN,TOTAL 0.5 mg/dL (0.2-2.0); CREATININE SERUM 2.3 mg/dL (0.6-1.4); GLOM FILT RATE Estimated 21.3 mL/min (>60); PROTEIN TOTAL SERUM 6.4 g/dL (6.0-8.3)
[2016-11-08 19:42] LABS: CALCIUM SERUM 5.4 mg/dL (8.4-10.2)
[2016-11-08 20:22] LABS: URINE SOURCE CLEAN CATCH
[2016-11-08 20:40] LABS: CULTURE INDICATED? YES; URINE APPEARANCE CLEAR; URINE BACTERIA AUWI 4+ (NEGATIVE); URINE BILIRUBIN NEG (NEG); URINE BLOOD 2+ (NEG); URINE COLOR YELLOW; URINE GLUCOSE NEG (NEG); URINE KETONE NEG (NEG); URINE LEUKOCYTE ESTERASE 1+ (NEG); URINE NITRATE NEG (NEG); URINE PROTEIN NEG (NEG); URINE SPECIFIC GRAVITY 1.014 (1.003-1.035); URINE SQUAMOUS EPITHELIAL CELL OCC /[HPF]; URINE UROBILINOGEN 0.2 MG/DL (NEG)
[2016-11-08] MEDS ORDERED: B-121000 MC1 PO (20:59)
[2016-11-08] MEDS ORDERED: SENNA-LAX8.6 M1 PO (21:01)
[2016-11-08] MEDS ORDERED: POTASSIUM CHLO10 MEQ PO (21:02)
[2016-11-08] MEDS ORDERED: CHEWABLE ASPIRI81 MG PO (21:02)
[2016-11-08] MEDS ORDERED: LASIX20 MG PO (21:03)
[2016-11-08] MEDS ORDERED: IMDUR-ER60 M1 PO (21:03)
[2016-11-08] MEDS ORDERED: AMIODARONE HCL100 MG PO (21:03)
[2016-11-08] MEDS ORDERED: CLOPIDOGREL75 MG PO (21:04)
[2016-11-08] MEDS ORDERED: PANTOPRAZOLE SO40 MG PO (21:04)
[2016-11-08] MEDS ORDERED: BUMEX PO (21:05)
[2016-11-08] MEDS ORDERED: GAVILAX17 GM PO (21:05)
[2016-11-08] MEDS ORDERED: DONEPEZIL HCL10 MG PO (21:05)
[2016-11-08] MEDS ORDERED: ZOLOFT50 MG PO (21:06)
[2016-11-08] MEDS ORDERED: SYNTHROID PO (21:06)
[2016-11-08] MEDS ORDERED: NAMENDA10 MG PO (21:07)
[2016-11-08] MEDS ORDERED: OCUVITE TABLET1 TA1 PO (21:07)
[2016-11-08] MEDS ORDERED: METOPROLOL SUCC25 MG PO (21:08)
[2016-11-08] MEDS ORDERED: DILAUDID PO ×2 (21:09→21:12)
[2016-11-08] MEDS ORDERED: MELATONIN3 MG PO (21:10)
[2016-11-08] MEDS ORDERED: NITROSTAT0.4 MG SL (21:11)
[2016-11-08] MEDS ORDERED: ZOFRAN ODT4 MG SL (21:11)
[2016-11-08] MEDS ORDERED: TYLENOL EXTRA500 M1 PO (21:12)
[2016-11-08] MEDS ORDERED: MILK OF MAGNESIA PO (21:13)
[2016-11-08] MEDS ORDERED: ANTIVERT PO (21:13)
[2016-11-08] MEDS ORDERED: REMERON15 MG PO (21:15)
[2016-11-08 23:31] LABS: ALBUMIN SERUM 2.6 g/dL (3.5-5.0); BILIRUBIN,TOTAL 0.6 mg/dL (0.2-2.0); CREATININE SERUM 2.4 mg/dL (0.6-1.4); GLOM FILT RATE Estimated 20.3 mL/min (>60); MAGNESIUM 1.7 mg/dL (1.6-3.0); PROTEIN TOTAL SERUM 6.2 g/dL (6.0-8.3)
[2016-11-08 23:32] LABS: CALCIUM SERUM 5.4 mg/dL (8.4-10.2)
[2016-11-09 05:47] LABS: BUN/CREATININE RATIO 21.36; CREATININE SERUM 2.2 mg/dL (0.6-1.4); GLOM FILT RATE Estimated 22.4 mL/min (>60)
[2016-11-09 05:49] LABS: CALCIUM SERUM 5.7 mg/dL (8.4-10.2)
[2016-11-09 05:54] LABS: THYROID STIMULATING HORMONE 0.14 uIU/ml (0.34-5.60)
[2016-11-09 06:01] LABS: FREE THYROXIN (T4) 1.28 ng/dL (0.58-1.64)
[2016-11-09 06:34] LABS: BASOPHIL# 0.1 X10e3 (0-0.3); BASOPHIL% 0.9 % (0-2.5); EOSINOPHIL# 0.1 X10e3 (0-0.7); EOSINOPHIL% 1.2 % (0.0-7.0); HEMATOCRIT 27.5 % (35.0-45.0); HEMOGLOBIN 8.5 gm/dL (12.0-16.0); LYMPHOCYTE# 1.4 X10e3 (1.0-3.5); LYMPHOCYTE% 12.9 % (17.0-45.0); MEAN CELL VOLUME 83.7 FL (83-96); MEAN CORPUSCULAR HGB CONC 31.1 g/dL (30-36); MEAN PLATELET VOLUME 8.8 FL (6.5-11.5); MONOCYTE# 0.9 X10e3 (0-1.0); PLATELET COUNT 266 X10e3 (140-420); RED BLOOD COUNT 3.28 X10e (3.90-5.30); RED CELL DISTRIBUTION WIDTH 17.5 % (11.0-15.5); WHITE BLOOD COUNT 10.6 X10e3 (4.0-10.5)
[2016-11-09 06:35] LABS: DIFF IND NO
[2016-11-10 08:07] LABS: BUN/CREATININE RATIO 17.3; CREATININE SERUM 2.6 mg/dL (0.6-1.4); GLOM FILT RATE Estimated 18.5 mL/min (>60); POTASSIUM 4.2 mmol/L (3.5-5.1)
[2016-11-10 08:10] LABS: CALCIUM SERUM 5.8 mg/dL (8.4-10.2)
[2016-11-10 09:11] LABS: HEMATOCRIT 26.5 % (35.0-45.0); HEMOGLOBIN 8.1 gm/dL (12.0-16.0); MEAN CORPUSCULAR HEMOGLOBIN 25.5 PG (28-34); MEAN CORPUSCULAR HGB CONC 30.7 g/dL (30-36); MEAN PLATELET VOLUME 8.7 FL (6.5-11.5); RED BLOOD COUNT 3.19 X10e (3.90-5.30); RED CELL DISTRIBUTION WIDTH 17.3 % (11.0-15.5); WHITE BLOOD COUNT 7.9 X10e3 (4.0-10.5)
[2016-11-10 09:56] LABS: BILIRUBIN, DIRECT 0.2 mg/dL (0.0-0.2); BILIRUBIN,INDIRECT 0.4 mg/dL (0.0-0.9); BILIRUBIN,TOTAL 0.6 mg/dL (0.2-2.0); PROTEIN TOTAL SERUM 4.8 g/dL (6.0-8.3)
[2016-11-10 16:00] LABS: BUN/CREATININE RATIO 17.5; CREATININE SERUM 2.8 mg/dL (0.6-1.4); POTASSIUM 4.8 mmol/L (3.5-5.1)
[2016-11-10 16:07] LABS: CALCIUM SERUM 5.9 mg/dL (8.4-10.2)
[2016-11-11 06:46] LABS: HEMATOCRIT 24.1 % (35.0-45.0); HEMOGLOBIN 7.5 gm/dL (12.0-16.0); MEAN CORPUSCULAR HGB CONC 31.3 g/dL (30-36); RED BLOOD COUNT 2.9 X10e (3.90-5.30); RED CELL DISTRIBUTION WIDTH 17.4 % (11.0-15.5); WHITE BLOOD COUNT 11.4 X10e3 (4.0-10.5)
[2016-11-11 07:15] LABS: ALBUMIN SERUM 2.1 g/dL (3.5-5.0); BILIRUBIN,TOTAL 0.3 mg/dL (0.2-2.0); BUN/CREATININE RATIO 18.51; CALCIUM SERUM 6.6 mg/dL (8.4-10.2); CREATININE SERUM 2.7 mg/dL (0.6-1.4); GLOM FILT RATE Estimated 17.7 mL/min (>60); MAGNESIUM 2.1 mg/dL (1.6-3.0); POTASSIUM 4.2 mmol/L (3.5-5.1); PROTEIN TOTAL SERUM 5.6 g/dL (6.0-8.3)
[2016-11-12 04:37] LABS: HEMATOCRIT 22.9 % (35.0-45.0); HEMOGLOBIN 7.2 gm/dL (12.0-16.0); MEAN CELL VOLUME 83.3 FL (83-96); MEAN CORPUSCULAR HEMOGLOBIN 26.1 PG (28-34); MEAN CORPUSCULAR HGB CONC 31.3 g/dL (30-36); MEAN PLATELET VOLUME 8.8 FL (6.5-11.5); RED BLOOD COUNT 2.75 X10e (3.90-5.30); RED CELL DISTRIBUTION WIDTH 17.2 % (11.0-15.5); WHITE BLOOD COUNT 8.4 X10e3 (4.0-10.5)
[2016-11-12 05:51] LABS: BUN/CREATININE RATIO 16.45; CALCIUM SERUM 6.1 mg/dL (8.4-10.2); CREATININE SERUM 3.1 mg/dL (0.6-1.4); GLOM FILT RATE Estimated 15.1 mL/min (>60)
[2016-11-13 09:27] LABS: HEMATOCRIT 21.1 % (35.0-45.0); MEAN CELL VOLUME 81.6 FL (83-96); MEAN CORPUSCULAR HEMOGLOBIN 25.4 PG (28-34); MEAN CORPUSCULAR HGB CONC 31.1 g/dL (30-36); MEAN PLATELET VOLUME 8.3 FL (6.5-11.5); RED BLOOD COUNT 2.58 X10e (3.90-5.30); RED CELL DISTRIBUTION WIDTH 17.3 % (11.0-15.5); WHITE BLOOD COUNT 9.1 X10e3 (4.0-10.5)
[2016-11-13 09:28] LABS: HEMOGLOBIN 6.6 gm/dL (12.0-16.0)
[2016-11-13 09:55] LABS: ALBUMIN SERUM 1.9 g/dL (3.5-5.0); BILIRUBIN,TOTAL 0.2 mg/dL (0.2-2.0); BUN/CREATININE RATIO 17.18; CREATININE SERUM 3.2 mg/dL (0.6-1.4); GLOM FILT RATE Estimated 14.6 mL/min (>60); MAGNESIUM 1.8 mg/dL (1.6-3.0); POTASSIUM 3.8 mmol/L (3.5-5.1); PROTEIN TOTAL SERUM 5.1 g/dL (6.0-8.3)
[2016-11-13 09:57] LABS: CALCIUM SERUM 5.8 mg/dL (8.4-10.2)
[2016-11-14 06:13] LABS: HEMATOCRIT 29.9 % (35.0-45.0); MEAN CELL VOLUME 82.5 FL (83-96); MEAN CORPUSCULAR HEMOGLOBIN 26.2 PG (28-34); MEAN CORPUSCULAR HGB CONC 31.8 g/dL (30-36); MEAN PLATELET VOLUME 8.5 FL (6.5-11.5); RED BLOOD COUNT 3.63 X10e (3.90-5.30); RED CELL DISTRIBUTION WIDTH 16.7 % (11.0-15.5); WHITE BLOOD COUNT 9.4 X10e3 (4.0-10.5)
[2016-11-14 06:18] LABS: HEMOGLOBIN 9.5 gm/dL (12.0-16.0)
[2016-11-14 07:07] LABS: CALCIUM SERUM 6.7 mg/dL (8.4-10.2); CREATININE SERUM 2.6 mg/dL (0.6-1.4); GLOM FILT RATE Estimated 18.5 mL/min (>60); POTASSIUM 4.5 mmol/L (3.5-5.1)
[2016-11-14 07:10] LABS: IRON SERUM 291 ug/dL (28-170); TOTAL IRON BINDING CAPACITY 302 ug/dL (269-535); TRANSFERRIN 216 mg/dL (192-382); TRANSFERRIN SATURATION 96 % (20-50)
[2016-11-15 06:11] LABS: HEMATOCRIT 28.3 % (35.0-45.0); HEMOGLOBIN 9.1 gm/dL (12.0-16.0); MEAN CELL VOLUME 82.7 FL (83-96); MEAN CORPUSCULAR HEMOGLOBIN 26.7 PG (28-34); MEAN CORPUSCULAR HGB CONC 32.3 g/dL (30-36); MEAN PLATELET VOLUME 8.6 FL (6.5-11.5); RED BLOOD COUNT 3.42 X10e (3.90-5.30); RED CELL DISTRIBUTION WIDTH 16.9 % (11.0-15.5); WHITE BLOOD COUNT 9.8 X10e3 (4.0-10.5)
[2016-11-15 07:22] LABS: BUN/CREATININE RATIO 19.54; CALCIUM SERUM 6.7 mg/dL (8.4-10.2); CREATININE SERUM 2.2 mg/dL (0.6-1.4); GLOM FILT RATE Estimated 22.4 mL/min (>60); POTASSIUM 4.6 mmol/L (3.5-5.1)
[2016-11-16 06:16] LABS: HEMATOCRIT 31.6 % (35.0-45.0); HEMOGLOBIN 9.7 gm/dL (12.0-16.0); MEAN CELL VOLUME 84.3 FL (83-96); MEAN CORPUSCULAR HGB CONC 30.8 g/dL (30-36); MEAN PLATELET VOLUME 8.4 FL (6.5-11.5); RED BLOOD COUNT 3.74 X10e (3.90-5.30); WHITE BLOOD COUNT 11.1 X10e3 (4.0-10.5)
[2016-11-16 07:20] LABS: ALBUMIN SERUM 1.9 g/dL (3.5-5.0); BILIRUBIN,TOTAL 0.7 mg/dL (0.2-2.0); BUN/CREATININE RATIO 22.35; CALCIUM SERUM 7.1 mg/dL (8.4-10.2); CREATININE SERUM 1.7 mg/dL (0.6-1.4); GLOM FILT RATE Estimated 30.2 mL/min (>60); POTASSIUM 4.8 mmol/L (3.5-5.1); PROTEIN TOTAL SERUM 4.5 g/dL (6.0-8.3)
[2016-11-16 09:41] LABS: CALCIUM (PTHINTACT) 6.5 mg/dL (8.6-10.4)
[2016-11-17 17:07] LABS: CALCIUM (PTHINTACT) 6.5 mg/dL (8.6-10.4)
== END 2016-11-16 16:18 | DRG 603 ==
LOC: CED 19:15 → CEDOF 23:15 → C3A PCU 11-09 08:23
PROVIDERS: Emergency Medicine; Family Medicine; Internal Medicine; Internal Medicine Nephrology; Physician Assistant Medical
PROC: 30233N1 Transfusion of Nonautologous Red Blood Cells into Peripheral Vein, Percutaneous Approach (ICD-10-PCS; 2016-11-13)
PROC: 0DB68ZX Excision of Stomach, Via Natural or Artificial Opening Endoscopic, Diagnostic (ICD-10-PCS; principal; 2016-11-15 14:53)
DX: L03.116 Cellulitis of left lower limb (principal); N18.4 Chronic kidney disease, stage 4 (severe); E87.2 Acidosis; N17.9 Acute kidney failure, unspecified; E83.51 Hypocalcemia; D62 Acute posthemorrhagic anemia; N39.0 Urinary tract infection, site not specified; S42.001A Fracture of unspecified part of right clavicle, initial encounter for closed fracture; W19.XXXA Unspecified fall, initial encounter; Y92.129 Unspecified place in nursing home as the place of occurrence of the external cause; I25.10 Atherosclerotic heart disease of native coronary artery without angina pectoris; I08.3 Combined rheumatic disorders of mitral, aortic and tricuspid valves; I12.9 Hypertensive chronic kidney disease with stage 1 through stage 4 chronic kidney disease, or unspecified chronic kidney disease; Z86.73 Personal history of transient ischemic attack (TIA), and cerebral infarction without residual deficits; Z85.3 Personal history of malignant neoplasm of breast; E03.9 Hypothyroidism, unspecified; F03.90 Unspecified dementia, unspecified severity, without behavioral disturbance, psychotic disturbance, mood disturbance, and anxiety; G25.0 Essential tremor; Z90.710 Acquired absence of both cervix and uterus; Z90.49 Acquired absence of other specified parts of digestive tract; Z87.891 Personal history of nicotine dependence; L29.9 Pruritus, unspecified; Z95.0 Presence of cardiac pacemaker; K29.70 Gastritis, unspecified, without bleeding; Z66 Do not resuscitate; B96.1 Klebsiella pneumoniae [K. pneumoniae] as the cause of diseases classified elsewhere; D50.9 Iron deficiency anemia, unspecified
CPT/HCPCS: 36415; 70450; 71010; 72072; 72100; 73030; 80048; 80053; 80076; 81003; 82150; 82274; 82306; 82310; 82330; 82550; 82728; 83540; 83550; 83605; 83690; 83735; 83970; 84100; 84439; 84443; 85025; 85027; 86000; 86850; 86900; 86901; 86923; 87040; 87086; 87088; 87186; 87493; 88305; 88312; 93005; 93970; 94640; 94760; 96374; 96375; 97110; 97116; 97162; 97166; 97530; 99285; C9113; G8978-GP; G8979-GP; G8987-GO; G8988-GO; G8989-GO; J0295; J0610; J1650; J1940; J2270; J2405; J2916; J3475; P9016; Q4081

== ENCOUNTER 2016-12-03 23:17 | Inpatient (IN) | payer MEDICARE, OTHER ==
--- NOTE | ~2016-12-03 | CR63 ---
[facility] A Service of [facility] RADIOLOGY TEXT RESULTS PATIENT: CONSTANTINE LOVE LOCATION: [place] [address] : [birth year] UNIT #: [id number] AGE: [address]: Tyrell Benavides MD SEX: F ORDER DR: [id number] [facility] [address] [place], [place] [address] [id number] I MR#: [id number] Acc #: [id number] NAME: CONSTANTINE LOVE. : 1930 SEX: F STUDY DATE/TIME: 12/05/2016 8:55 UNIT: CEDOF ROOM: 78423 STUDY DESCRIPTION: CR Chest 2 View Attending Physician: Tyrell Benavides M.D. Ordering Physician: Tyrell Benavides M.D. Primary Care Physician: Tyrell Benavides M.D. MEDICAL IMAGING REPORT This report is preliminary unless electronic signature is present EXAM PA and lateral chest radiograph INDICATION Right upper chest pain, shortness of breath for 2 days. FINDINGS Patient does appear to have some cardiomegaly although I do not see any evidence of vascular congestion. No pneumothorax is seen. There is some persistent patchy consolidation noted at the left lung base as well as a small left pleural effusion. No pneumothorax is identified. Left-sided pacemaker is present. IMPRESSION 1. Persistent left basilar consolidation and trace left pleural effusion. 2. Cardiomegaly without evidence of vascular congestion. Dictated by... Celia Guerrier M.D. THIS IS AN ELECTRONICALLY VERIFIED REPORT Celia Guerrier M.D. at 12/06/2016 4:35 PM AFF/aa TD: 12/05/2016 17:43 JOB #: [id number] MEDICAL IMAGING REPORT Page 1 of 1 COPY
--- NOTE | ~2016-12-03 | CR72 ---
[facility] A Service of [facility] RADIOLOGY TEXT RESULTS PATIENT: CONSTANTINE LOVE LOCATION: [facility] [id number] : [birth year] UNIT #: [id number] AGE: [address]: Tyrell Benavides MD SEX: F ORDER DR: [id number] [facility] [address] [place], [place] [address] [id number] I MR#: [id number] Acc #: [id number] NAME: CONSTANTNIE LOVE. : 1930 SEX: F STUDY DATE/TIME: 12/09/2016 13:33 UNIT: [facility] ROOM: [facility] STUDY DESCRIPTION: CR Chest Single View Portable Attending Physician: Tyrell Benavides M.D. Ordering Physician: Tyrell Benavides M.D. Primary Care Physician: Tyrell Benavides M.D. MEDICAL IMAGING REPORT This report is preliminary unless electronic signature is present EXAM Portable chest INDICATION 85-year-old female with congestion today. COMPARISON Comparison with 12/07/2016. FINDINGS No new infiltrates. Heart size stable. Pacemaker. Atherosclerotic calcification of the aorta. IMPRESSION No significant change in the appearance of the chest. Dictated by... Nirav Aranda M.D. THIS IS AN ELECTRONICALLY VERIFIED REPORT Nirav Aranda M.D. at 12/09/2016 4:50 PM DESTINY/arleth TD: 12/09/2016 15:10 JOB #: [id number] MEDICAL IMAGING REPORT Page 1 of 1 COPY
--- NOTE | ~2016-12-03 | A ---
[facility] Nutrition Therapy DATE: 12/07/16 Patient: CONSTANTINE LOVE Physician: GREGORIO Address: [address] [place], [place] [address] Room/Bed: [address] [place] [address], Zip: [place] [address] Admit Date: 12/04/16 Date of : [birth year] Height: 5 2 Weight: 169 76.8 NUTRITIONAL ASSESSMENT: REASON: Consult, 2 nutrition pts RE: pressure ulcer, eating poorly 85 yo female admitted for hypocalcemia PMH: CAD, CKD, HTN, previous CV and TIA, hypothyroidism, dementia, anemia, esstential tremors Anthropometrics: Ht: 5'2" Wt: 76.8 kg (169#) BMI: 31.0 Labs: BUN 35, Creat 1.7, Ca++ 7.6, Phos 5.1, GFR 26.7 Meds: NaCl, Furosemide, Remeron, Miralax, Protonix, K, Vitamin B12, Zofran, Synthroid I/O & Bowel function: 960/183, last BM 12/06 Skin Integrity: Red rash (groin, thigh), scar (L chest, R breast, abd), red peeling blister (LLE, plantar L foot), brown color (BLE) Edema: BLE 2+ Assessment: Chart reviewed, events noted. Pt reported having poor appetite recently as well as not eating much. Pt was unable to remember weight history. RD education intern encouraged adequate intake to promote skin healing and increased energy. RD education intern encouraged supplement, pt agreed to Ensure pudding. See recommendations below. Dx: Inadequate oral intake RT PMH, current condition AEB eating poorly. Intervention: 1. Ensure pudding BID 2. Healthy heart Monitoring, Evaluation and Goals: 1. PO intake; consume >75% of meals and supplements 2. Labs; WNL: Ca++ 3. Weight; prevent unintentional weight loss 4. Skin; promote skin healing Recommendations: 1. Order chocolate Ensure pudding BID w/ meals. [facility] Nutrition Therapy DATE: 12/07/16 Patient: CONSTANTINE LOVE Physician: GREGORIO Address: [address] [place], [place] [address] Room/Bed: [address] [place] [address], Zip: [place] [address] Admit Date: 12/04/16 Date of : [birth year] Height: 5 2 Weight: 169 76.8 2. Consider adding MVI with minerals daily + 100-200 mg Vitamin C daily to aid in skin healing. 3. Appreciate family and staff to encourage adequate intake. Pt is at a mild nutritional risk. RD will f/u per protocol. Respectfully, Armida Waters, Telecommunications Technician Lino Gibson MS, RD, LD Food and Nutritional Services [facility] [place] [facility] cc: client file
--- NOTE | ~2016-12-03 | CT57 ---
[facility] A Service of [facility] & [facility] RADIOLOGY TEXT RESULTS PATIENT: CONSTANTINE LOVE LOCATION: [facility] 570-01 : [birth year] UNIT #: [id number] AGE: [address]: Tyrell Benavides MD SEX: F ORDER DR: [id number] [facility] [address] [place], [place] [address] [id number] I MR#: [id number] Acc #: [id number] NAME: CONSTANTINE LOVE. : 1930 SEX: F STUDY DATE/TIME: 12/07/2016 17:32 UNIT: [facility] ROOM: [facility] STUDY DESCRIPTION: CT Chest Wo Cont Attending Physician: Tyrell Benavides M.D. Ordering Physician: Kaylee Orr M.D. Primary Care Physician: Tyrell Benavides M.D. MEDICAL IMAGING REPORT This report is preliminary unless electronic signature is present EXAM CT chest without contrast INDICATIONS Pneumonia. Abnormal chest radiograph. Cough and congestion for [address] exam was performed with one or more of the following radiation dose reduction techniques: automatic exposure control, adjustment of mA and/or kV according to patient size, and iterative reconstruction. CT of the thorax without contrast. Coronal and sagittal reconstructions were obtained. COMPARISON Chest radiograph dated 08/03/[address] chest dated 07/28/2015. FINDINGS There is a small area of interstitial thickening in the periphery of the right middle lobe. This may represent an area of early pneumonia. There is minimal atelectasis in the dependent portions of both lungs. Several small noncalcified pulmonary nodules are unchanged from the 07/28/2015 exam compatible with benign granulomas. There is an index nodule in the right upper lobe measuring 5 mm. The other nodules are all smaller than 5 mm. There is a calcified granuloma in the left upper lobe indicating prior granulomatous exposure. Mild bronchial wall thickening can be seen in the setting of acute or chronic bronchitis. No pathologically enlarged mediastinal or hilar lymph nodes. No pericardial or pleural effusion. Moderate coronary calcifications. Calcifications at the aortic valve suggesting aortic valvular stenosis. The descending thoracic aorta is at the upper limits of normal measuring 3.9 cm. [facility] A Service of [facility] & [facility] RADIOLOGY TEXT RESULTS PATIENT: CONSTANTINE LOVE LOCATION: [facility] 570-01 : [birth year] UNIT #: [id number] AGE: [address]: Tyrell Benavides MD SEX: F ORDER DR: Limited images of the upper abdomen were obtained. There is mild bilateral renal atrophy. No acute findings. No acute osseous abnormalities. There is remote T11-T12 compression fractures well as mild T4 compression fracture. IMPRESSION 1. Small peripheral area of mild interstitial thickening in the right middle lobe. This could represent early pneumonia versus some microatelectasis. Please correlate with clinical symptoms. 2. Minimal atelectasis in both lung bases. 3. Mild bronchial wall thickening can be seen in the setting of acute or chronic bronchitis. 4. Small pulmonary nodule measuring less than 5 mm. These are unchanged from at least July 2015 and are felt to be benign granulomas. 5. Calcifications of the aortic valve. This can be associated with aortic valvular stenosis. Dictated by... Owen Verduzco M.D. THIS IS AN ELECTRONICALLY VERIFIED REPORT Owen Verduzco M.D. at 12/08/2016 2:59 PM Lars TD: 12/07/2016 22:55 JOB #: [id number] MEDICAL IMAGING REPORT Page 1 of 1 COPY
--- NOTE | ~2016-12-03 | EKG ---
PATIENT: CONSTANTINE LOVE UNIT #: [id number] Ventricular Rate: 83 BPM Atrial Rate: 83 BPM P-R Interval: 264 ms QRS Duration: 128 ms Q-T Interval: 432 ms QTC Calculation(Bezet): 507 ms Calculated R Burchard: -34 degrees Calculated T Burchard: 0 degrees Diagnosis Line: Atrial-paced rhythm with prolonged AV conduction Diagnosis Line: Left axis deviation Diagnosis Line: Right bundle branch block Diagnosis Line: Abnormal ECG Diagnosis Line: When compared with ECG of 08-NOV-2016 17:54, Diagnosis Line: No significant change was found Diagnosis Line: Confirmed by MONSERRAT MALIN MD ([id number]) on 12/07/2016 Diagnosis Line: 10:32:08 PM INTERPRETING MD: DEA GONZÁLES
--- NOTE | ~2016-12-03 | CR72 ---
[facility] A Service of [facility] & [facility] RADIOLOGY TEXT RESULTS PATIENT: CONSTANTINE LOVE LOCATION: [facility] [id number] : [birth year] UNIT #: [id number] AGE: [address]: Tyrell Benavides MD SEX: F ORDER DR: [id number] [facility] [address] [place], [place] [address] [id number] I MR#: [id number] Acc #: [id number] NAME: CONSTANTINE LOVE. : 1930 SEX: F STUDY DATE/TIME: 12/03/2016 22:38 UNIT: [facility] ROOM: 81061 STUDY DESCRIPTION: CR Chest Single View Portable Attending Physician: Tyrell Benavides M.D. Ordering Physician: Monroe Gibbs M.D. Primary Care Physician: Tyrell Benavides M.D. MEDICAL IMAGING REPORT This report is preliminary unless electronic signature is present EXAM Portable chest 12/03/2016 HISTORY 85-year-old female with shortness of air and cough beginning today. Essential hypertension. COMPARISON Chest 11/11/2016. FINDINGS Frontal chest demonstrates clear lungs. No pleural effusion or pneumothorax. Heart size and mediastinum within normal limits. Pulmonary vasculature unremarkable. Left-sided pacing complex. IMPRESSION No acute cardiopulmonary findings. No significant change from 11/11/2016. Dictated by... Mauricio Guy M.D. THIS IS AN ELECTRONICALLY VERIFIED REPORT Mauricio Guy M.D. at 12/04/2016 11:30 PM NATHANIEL/arleth TD: 12/04/2016 12:58 JOB #: [id number] MEDICAL IMAGING REPORT Page 1 of 1 COPY
--- NOTE | ~2016-12-03 | CO ---
Unit #: [id number] #: [id number] Patient: CONSTANTINE LOVE [id number] [address] [address] [id number] I MR#: [id number] NAME: CONSTANTINE LOVE. ROOM: 570 Age: 85 Sex: F Admission Date: 12/04/2016 : 1930 Attending Physician: Tyrell Benavides M.D. Primary Care Physician: Tyrell Benavides M.D. CONSULTATION REPORT REASON FOR CONSULTATION Pneumonia. CHIEF COMPLAINT/HISTORY OF PRESENT ILLNESS This patient basically is an 85-year-old female who has a past medical history significant for coronary artery disease and chronic kidney disease, hypertension, right vertebral artery stenosis, hepatitis, dementia, anemia, essential tremor, presents with a complaint of abnormal labs and patient was found to have hypercalcemia. On presentation, had a chest x-ray done which has shown left basilar consolidation and trace left sided pleural effusion. I am seeing the patient at the bedside, currently on oxygen without any headache, blurry vision. No chest pain. Complaining of shortness of breath. REVIEW OF SYSTEMS Positive for pallor. No edema, no cyanosis, no jaundice. The rest as per History of Present Illness. The rest of the twelve point review of systems has been reviewed and is negative. PAST MEDICAL HISTORY As described above. SOCIAL HISTORY Ex-smoker. No alcohol, no drug abuse. FAMILY HISTORY None as per record. PHYSICAL EXAMINATION VITAL SIGNS: Temperature 98, pulse 87, respirations 12, blood pressure 130/70. NEUROLOGICAL: Awake, alert, oriented. No neuro deficit. HEENT: PERRLA. NECK: Supple. No JVD. CHEST: Bilateral air entry, bilateral mild rhonchi. GI: Nontender, soft. Bowel sounds positive. EXTREMITIES: No edema. DIAGNOSTIC STUDIES LABORATORY: Her creatinine is 1.8, calcium is 7.6. The patient's white count is normal. Hemoglobin 12, hematocrit 38. Unit #: [id number] #: [id number] Patient: CONSTANTINE LOVE IMAGING: Chest x-ray reviewed. ASSESSMENT AND PLAN 1. Left sided basal consolidation and left sided pleural effusion, likely underlying chronic obstructive pulmonary disease. 2. Hypocalcemia. 3. Chronic kidney disease. At this point, plan is to order a non-contrast CT of the chest to better evaluate the pathology on the chest x-ray and continue oxygen and bronchodilator for now. No signs or symptoms of infection. Clinically, we will continue to monitor the patient. Thank you very much for this consultation. Dictated by... Lalo Vazquez TD: 12/07/2016 05:42 JOB #: [id number] CONSULTATION REPORT Page 1 of 1 X Kaylee Orr MD X CONSULTATION REPORT
--- NOTE | ~2016-12-03 | DS ---
Unit #: [id number] #: [id number] Patient: CONSTANTINE LOVE [id number] [address] [address] [id number] I MR#: [id number] NAME: CONSTANTINE LOVE. ROOM: [facility] Age: 85 Sex: F Admission Date: 12/04/2016 : 1930 Discharge Date: 12/11/2016 Attending Physician: Tyrell Benavides M.D. Primary Care Physician: Tyrell Benavides M.D. DISCHARGE SUMMARY FINAL DIAGNOSES 1. Hypocalcemia with hypoparathyroidism. 2. Hypokalemia. 3. Vitamin D deficiency. 4. Diarrhea. 5. Pneumonia. 6. Debility. 7. Stasis dermatitis. SECONDARY DIAGNOSES 1. Chronic kidney disease. 2. Hypertension. 3. History of CVA. 4. TIA. 5. Hypothyroidism. 6. Dementia. 7. Anemia. 7. Essential tremors. 8. Coronary artery disease. 9. Pulmonary nodule. CONSULTANTS Pulmonary, Dr. Orr. Nephrology, Dr. Burton. HOSPITAL COURSE The patient is a pleasant 85-year-old female who was transferred to the hospital for evaluation on account of abnormal labs. She was profoundly hypocalcemic. Nephrology was consulted and they determined that she had a combination of hypopituitarism as well as hypocalcemia as well as vitamin D deficiency, which resulted in profound hypocalcemia. She did receive calcium intravenously as well as repletion of her vitamin D levels. On discussion with Dr. Roni Looney, the decision was to put her on vitamin D 50,000 units p.o. every week in combination with calcium supplementation. Her potassium was repleted. She did have some diarrhea for which stool for c-diff was obtained. At the time of dictation testing result was not available. However, should results come up positive we will put her on medication of Flagyl. She was diagnosed as having had pneumonia as well. This was adequately treated. She does have some congestion, for which she is going to be empirically placed on steroids and mucolytics. She was also seen by dermatology for her bilateral lower extremities and it was determined that she had ulcerative stasis dermatitis. We have put her on triamcinolone cream to her lower legs for Unit #: [id number] #: [id number] Patient: CONSTANTINE LOVE ulcer erosion and ulcer lesion. She was evaluated and found stable for discharge and will [facility]. DISCHARGE MEDICATIONS 1. Dilaudid 1 mg p.o. q.5 h. p.r.n. 2. Tussionex 85 ml p.o. b.i.d. 3. Prednisone 20 mg p.o. daily. 4. Triamcinolone 0.1% cream applied to affected area of the lower legs b.i.d. 5. Amiodarone 100 mg p.o. daily. 6. Tylenol 500 mg p.o. q.6 h. p.r.n. 7. Clobetasol Propionate applied b.i.d. to bilateral lower extremities. 8. Remeron 15 mg p.o. at bedtime. 9. Zoloft 50 mg q. morning. 10. Imodium 10 mg p.o. t.i.d. p.r.n. loose stools. 11. Meclizine 25 mg p.o. t.i.d. p.r.n. dizziness. 12. Zofran ODT 4 mg sublingual q.6 h. p.r.n. nausea. 13. Hydroxyzine 10 mg p.o. t.i.d. p.r.n. itching. 14. Metoprolol XL 25 mg p.o. t.i.d. 15. Milk of Magnesia 30 ml p.o. daily for constipation. 16. MiraLAX 17 g p.o. daily for constipation. 17. Senokot S 2 tablets p.o. q. evening for constipation p.r.n. The patient has diarrhea at this time. 18. Namenda 10 mg p.o. b.i.d. 19. Aricept 10 mg p.o. daily. 20. Lasix 20 mg p.o. b.i.d. 21. Lac-Hydrin topically to affected skin. 22. Clobetasol cream. 23. Ocuvite 1 tablet daily. 24. Centrum Complete Multivitamin 1 tablet daily. 25. Melatonin 3 mg at bedtime p.r.n. 26. Aspirin 81 mg p.o. daily. 27. Plavix 75 mg p.o. daily. 28. Protonix 40 mg p.o. daily. 29. Calcium with vitamin D 1 tablet p.o. b.i.d. 30. Potassium chloride 10 mEq p.o. daily. 31. Synthroid 100 mcg p.o. daily. 32. Imdur ER 60 mg p.o. daily. 33. Nitroglycerin 0.4 mg sublingual p.r.n. chest pain. 34. Rocaltrol 0.2 mcg p.o. daily. 35. Vitamin B12 1000 mcg p.o. daily. 36. Florastor 250 mg p.o. b.i.d. 37. Antibiotic was discontinued. DIAGNOSTIC DATA LABORATORY: Today, the day of discharge, the patient's creatinine was 1.6. Her white count was 6.6 the day prior. DISCHARGE CONDITION Stable. If there are any further antibiotic recommendations per pulmonary, this will be updated on the medication reconciliation. Time spent coordinating discharge was about 40 minutes. Dictated by... Unit #: [id number] #: [id number] Patient: CONSTANTINE LOVE Lalo Guzman TD: 12/11/2016 08:40 JOB #: [id number] DISCHARGE SUMMARY Page 1 of 1 X Tyrell Benavides MD X DISCHARGE SUMMARY
--- NOTE | ~2016-12-03 | CR63 ---
[facility] A Service of [facility] & [facility] RADIOLOGY TEXT RESULTS PATIENT: CONSTANTINE LOVE LOCATION: [facility] 570-01 : [birth year] UNIT #: [id number] AGE: [address]: Tyrell Benavides MD SEX: F ORDER DR: [id number] [facility] [address] [place], [place] [address] [id number] I MR#: [id number] Acc #: [id number] NAME: CONSTANTINE LOVE : 1930 SEX: F STUDY DATE/TIME: UNIT: [facility] ROOM: [facility] STUDY DESCRIPTION: CR Chest 2 View Attending Physician: Tyrell Benavides M.D. Ordering Physician: Moi Carter M.D. Primary Care Physician: Tyrell Benavides M.D. MEDICAL IMAGING REPORT This report is preliminary unless electronic signature is present EXAM Chest 2 views 12/07/2016 1213 hours HISTORY 85-year-old woman complaining of pneumonia, shortness of air, right chest pain for 4 days. History of breast carcinoma. COMPARISON 12/05/2016 FINDINGS Portable upright chest demonstrates slightly low lung volumes. The cardiac, mediastinal and hilar contours are stable. Pacer device is stable. Lungs are clear and there are no effusions. There is abnormal appearance to the distal aspect of the right clavicle representing a change from the appearance on 08/03/2015. This could be related to fracture or perhaps pathologic fracture due to underlying lesion in the distal clavicle. Patient is scheduled for CT today and inclusion of the clavicle on that CT is recommended. IMPRESSION 1. Slightly low lung volumes with no acute cardiopulmonary findings. Stable pacer device. 2. Abnormal appearance to the distal right clavicle suggesting fracture or pathologic fracture. This is new from the chest film 08/03/2015. Underlying metastasis cannot be excluded. Old healed fracture right proximal humerus is unchanged. Dictated by... Faith Clark M.D. THIS IS AN ELECTRONICALLY VERIFIED REPORT Faith Clark M.D. at 12/07/2016 2:31 PM STS. [facility] A Service of [facility] & [facility] RADIOLOGY TEXT RESULTS PATIENT: CONSTANTINE LOVE LOCATION: [facility] 570-01 : [birth year] UNIT #: [id number] AGE: [address]: Tyrell Benavides MD SEX: F ORDER DR: NORA/nathanael TD: 12/07/2016 13:22 JOB #: [id number] MEDICAL IMAGING REPORT Page 1 of 1 COPY
--- NOTE | ~2016-12-03 | CO ---
Unit #: [id number] #: [id number] Patient: CONSTANTINE LOVE [id number] [address] [address] [id number] I MR#: [id number] NAME: CONSTANTINE LOVE ROOM: 570 Age: 85 Sex: F Admission Date: 12/04/2016 : 1930 Attending Physician: Tyrell Benavides M.D. Primary Care Physician: Tyrell Benavides M.D. Consultation Date: 12/04/2016 CONSULTATION REPORT REASON FOR CONSULTATION Hypocalcemia and elevated creatinine level. HISTORY OF PRESENT ILLNESS The patient is an 85-year-old white female with known history of coronary artery disease, status post coronary artery stent placement; chronic atrial fibrillation; chronic kidney disease, stage 3 to 4, with a creatinine level of 1.8 to 2.2 in the last one year; hypertension; history of CVA; history of vertebral artery stenosis on the right side; hypothyroidism; status post right mastectomy; and history of hysterectomy, came in with weakness and noted to have a calcium level of 5.4 with a creatinine level of 2.3, the baseline creatinine as above. The patient recently was discharged after acute anemia, comes back. No reported vomiting, diarrhea, recent IV contrast, NSAID use. ALLERGIES Codeine. FAMILY HISTORY Unremarkable for end-stage renal disease. SOCIAL HISTORY The patient is a skilled nursing resident. REVIEW OF SYSTEMS Not reliably available. PAST SURGICAL HISTORY Significant for hysterectomy, appendectomy, thyroid surgery, cholecystectomy, and tracheostomy. HOME MEDICATIONS Vitamin B12, aspirin, Lasix 20 mg daily, Imdur 60 mg daily, amiodarone 100 mg daily, Plavix 75 mg daily, Protonix 40 mg daily, Aricept 10 mg daily, Zoloft 50 mg daily, Synthroid 100 mcg daily, Namenda 10 mg b.i.d., metoprolol 25 mg t.i.d., and Remeron 15 mg at night. PHYSICAL EXAMINATION GENERAL: The patient is awake and comfortable. VITAL SIGNS: Blood pressure 96/61, heart rate 91 per minute, and temperature 98.2. HEENT: Head is atraumatic. Extraocular movements are intact. Sclerae are anicteric. NECK: Supple. There is no elevation of the JVD. Unit #: [id number] #: [id number] Patient: CONSTANTINE LOVE CHEST: Clear. Air entry is equal bilaterally. Breathing is vesicular in nature. S1 and S2 audible. There is no S3, no S4. ABDOMEN: Soft. There is no organomegaly. No guarding. No rigidity. No rebound tenderness. There is trace edema. HEALTH INSPECTOR FOOD: Motor system is intact. Cerebellar system is intact. DIAGNOSTIC STUDIES LABORATORY RESULTS: Sodium is 136, potassium 4.1, chloride 100, CO2 of 26, BUN 32, creatinine 2.1, calcium 5.7, and glucose 116. WBC 6.7, H and H 12.7 and 40.3, and platelets 194. IMPRESSION 1. Hypocalcemia, possible vitamin D deficiency versus primary hypoparathyroidism. We will check the PTH level and also vitamin D level. Supplement the calcium. No clinical sequelae at this time. 2. 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 3. Anemia. 4. Hypertension. We will follow the patient with you. 5. Possible urinary tract infection. The patient has been started on Rocephin. Follow urine cultures. Dictated by... Lalo Lowry TD: 12/06/2016 12:05 JOB #: [id number] CONSULTATION REPORT Page 1 of 1 X Roni Looney MD CONSULTATION REPORT
--- NOTE | ~2016-12-03 | HP ---
Unit #: [id number] #: [id number] Patient: CONSTANTINE LOVE [id number] [address] [place], [place] [address] [id number] I MR#: [id number] NAME: CONSTANTINE LOVE. ROOM: 07502 Age: 85 Sex: F Admission Date: 12/04/2016 : 1930 Attending Physician: Tyrell Benavides M.D. Primary Care Physician: Tyrell Benavides M.D. HISTORY AND PHYSICAL CHIEF COMPLAINT Abnormal labs. HISTORY OF PRESENT ILLNESS The patient is an 85-year-old female who was admitted to my service at [address] [place] [address] in Rehab. She was recently discharged on 11/16/2016 for evaluation for anemia, for which the patient did have blood transfusions. She also had hypocalcemia during her last admission. She was recently returned to hospital for evaluation because of abnormalities of labs. She denies any new complaints at this time. She states she is weak all over. REVIEW OF SYSTEMS Complete ten point review of systems are being attempted however, secondary to burden of disease and cognitive status, this is limited. She denies any pain however. PAST MEDICAL HISTORY Significant for fall with right clavicular fracture, coronary artery disease with ejection fraction of 60%, mild mitral regurg, chronic kidney disease, hypertension, previous CV and TIA, history of right vertebral artery stenosis, hypothyroidism, some dementia, anemia, essential tremors. PAST SURGICAL HISTORY Hysterectomy, appendectomy, thyroid surgery, cholecystectomy, failed tracheostomy in the past secondary to hematoma while on Coumadin. MEDICATIONS Vitamin B12 1,000 mg p.o. daily; Senna lax 2 tablets p.o. every evening; potassium chloride 10 mEq p.o. daily; aspirin 81 mg p.o. daily; Lasix 20 mg p.o. daily; Imdur ER 60 mg p.o. daily; amiodarone 100 mg p.o. daily; Plavix 75 mg p.o. daily; Protonix 40 mg p.o. daily; GaviLAX 17 g p.o. daily; Bumex 0.5 mg p.o. daily; Aricept 10 mg p.o. daily; Zoloft 50 mg every morning; Synthroid 100 mcg p.o. daily; Namenda 10 mg p.o. twice daily; metoprolol 25 mg p.o. 3 times a day; Dilaudid 1 mg p.o. daily 5 hours p.r.n.; melatonin 3 mg p.o. daily; Nitrostat 0.4 mg sublingual p.r.n.; Ocuvite 1 tablet p.o. daily; Zofran ODT 4 mg sublingual every 8 hours; Tylenol extra 500 mg every 6 hours; Dilaudid 1 mg p.o. every 1 hour; meclizine 25 mg p.o. 3 times a day; Remeron 15 mg p.o. every evening. ALLERGIES No known drug allergies. SOCIAL HISTORY The patient currently resides in this facility. Quit smoking about 35 Unit #: [id number] #: [id number] Patient: CONSTANTINE LOVE years ago. No alcohol use or illicit drug used. PHYSICAL EXAMINATION GENERAL: She was not in distress. VITAL SIGNS: Blood pressure 96/61, pulse 91, respiratory rate 13, temperature 98.2. HEENT: Pupils equal, round and reactive to light and accommodation. NECK: Supple without thyromegaly at this time. CHEST: Mostly clear with fine crackles at lung bases. CARDIOVASCULAR: First and second heart sounds, systolic murmur. ABDOMEN: Soft and nondistended. No palpable organomegaly. EXTREMITIES: Some limitation of mild bilateral lower extremity edema. NEUROLOGIC: Patient seems to be pleasantly confused at baseline but is oriented to self. Cranial nerves are intact. She has some tremors as well at rest. DIAGNOSTIC DATA LABORATORY STUDIES: Patient has glucose of 116, BUN and creatinine 32 and 2.1. Sodium and potassium 136 and 4.1, chloride and bicarbonate 100 and 26 respectively. Calcium of 5.7, corrected calcium was 6.8. Phos of 5.0, magnesium 1.8, albumin 2.6. Alk phos of 111. CBC - WBC 6.2, hemoglobin and hematocrit 12.7, and 40.3 with a platelet count of 194. Urinalysis showed leukocyte esterase 3+, urobilinogen 2+. ASSESSMENT AND PLAN 1. Hypocalcemia. Give (1) calcium gluconate. Consult nephrology. This is not a new problems. Not exactly sure what the long-term plan will be for her hypocalcemia. 2. Possible UTI. Will await urine cultures. 3. History of breast cancer. (2) at this time. 4. Renal failure. Again will see nephrology's opinion. 5. CAD. Continue medications. DISPOSITION Nephrology evaluation and opinion. The patient may be suitable for discharge within the next 24 to 48 hours. Also pending urine culture results. Dictated by Lalo Guzman/erasmo TD: 12/04/2016 12:10 JOB #: [id number] HISTORY AND PHYSICAL Page 1 of 1 X Tyrell Benavides MD X HISTORY AND PHYSICAL
--- NOTE | ~2016-12-03 | XA166 ---
[facility] A Service of [facility] RADIOLOGY TEXT RESULTS PATIENT: CONSTANTINE LOVE LOCATION: [facility] 570-01 : [birth year] UNIT #: [id number] AGE: [address]: Tyrell Benavides MD SEX: F ORDER DR: [id number] [facility] [address] [place], [place] [address] [id number] MR#: [id number] Acc #: [id number] NAME: CONSTANTINE LOVE. : 1930 SEX: F STUDY DATE/TIME: 12/06/2016 14:16 UNIT: [facility] ROOM: [facility] STUDY DESCRIPTION: XA PICC Line Placement WO Port Attending Physician: Tyrell Benavides M.D. Ordering Physician: Neena Morales M.D. Primary Care Physician: Tyrell Benavides M.D. MEDICAL IMAGING REPORT This report is preliminary unless electronic signature is present EXAM PICC line placement under ultrasound and fluoroscopy HISTORY Long-term venous access. PRE-PROCEDURE The procedure was explained to the patient and/or patient access representative including risks, benefits, potential complications and potential for alternative forms of treatment. Informed consent was obtained, and prior to initiating the procedure a formal timeout procedure was performed. PROCEDURE Using full standard sterile barrier technique, including caps, gowns, gloves, masks, as well as sterile skin preparation and standard sterile draping, the left arm was prepped and draped in the usual fashion, and real-time sterile ultrasound guidance was used to localize an arm vein and to confirm vessel patency. A hard copy ultrasound image was recorded. After local anesthesia with 1% Xylocaine, the left basilic vein was punctured using real-time sterile ultrasound guidance, and an 0.018 guidewire was advanced into the superior vena cava, using fluoroscopic guidance. A ___5__-[place]an _dual____-lumen PICC was then measured to 40 cm and deployed with the tip positioned in the superior vena cava. The position of the line was documented with a radiographic image. The line was secured in place with an adhesive dressing and an antibiotic patch was applied. Total fluoro time was 1.7 minutes. A single fluoroscopic spot image was obtained. Total exposure 18 mGy air kerma. IMPRESSION 1. Successful placement of a ___5__-[place]an ____dual__-lumen Power PICC via the left arm under ultrasound and fluoroscopic guidance. The tip [facility] A Service of [facility] RADIOLOGY TEXT RESULTS PATIENT: CONSTANTINE LOVE LOCATION: [facility] 570-01 : [birth year] UNIT #: [id number] AGE: [address]: Tyrell Benavides MD SEX: F ORDER DR: of the PICC is in good position in the superior vena cava. 2. A single fluoroscopic spot image was obtained as well as single ultrasound image. Dictated by... Mario Ellis M.D. THIS IS AN ELECTRONICALLY VERIFIED REPORT Mario Ellis M.D. at 12/09/2016 12:02 PM [place] TD: 12/06/2016 20:02 JOB #: [id number] MEDICAL IMAGING REPORT Page 1 of 1 COPY
[~2016-12-03 23:17] MED LIST changes: +ANTIVERT PO; +CHEWABLE ASPIRI81 MG PO; +DILAUDID PO; +DONEPEZIL HCL10 MG PO; +IMDUR-ER60 M1 PO; +MELATONIN3 MG PO; +METOPROLOL SUCC25 MG PO; +MILK OF MAGNESIA PO; +OCUVITE TABLET1 TA1 PO; +PANTOPRAZOLE SO40 MG PO; +SENNA-LAX8.6 M1 PO; +SYNTHROID PO; +TYLENOL EXTRA500 M1 PO; +ZOFRAN ODT4 MG SL; +ZOLOFT50 MG PO
[2016-12-04 00:16] LABS: INFLUENZA A NEG (NEG); INFLUENZA B NEG (NEG)
[2016-12-04 00:48] LABS: POC - CKMB <1.0 ng/mL (0.0-7.9); POC - TROPONIN <0.05 ng/mL (<=0.05)
[2016-12-04 01:02] LABS: BASOPHIL# 0.1 X10e3 (0-0.3); BASOPHIL% 0.8 % (0-2.5); EOSINOPHIL% 0.7 % (0.0-7.0); HEMATOCRIT 40.3 % (35.0-45.0); HEMOGLOBIN 12.7 gm/dL (12.0-16.0); LYMPHOCYTE# 3.6 X10e3 (1.0-3.5); LYMPHOCYTE% 53.2 % (17.0-45.0); MEAN CELL VOLUME 87.8 FL (83-96); MEAN CORPUSCULAR HEMOGLOBIN 27.8 PG (28-34); MEAN CORPUSCULAR HGB CONC 31.6 g/dL (30-36); MEAN PLATELET VOLUME 9.5 FL (6.5-11.5); MONOCYTE# 0.4 X10e3 (0-1.0); NEUTROPHIL# 2.6 X10e3 (1.5-7.1); NEUTROPHIL% 39.3 % (40-75); PLATELET COUNT 194 X10e3 (140-420); RED BLOOD COUNT 4.59 X10e (3.90-5.30); RED CELL DISTRIBUTION WIDTH 21.6 % (11.0-15.5); WHITE BLOOD COUNT 6.7 X10e3 (4.0-10.5)
[2016-12-04 01:06] LABS: DIFF IND YES
[2016-12-04 01:17] LABS: ALBUMIN SERUM 2.6 g/dL (3.5-5.0); BILIRUBIN, DIRECT 0.1 mg/dL (0.0-0.2); BILIRUBIN,INDIRECT 0.6 mg/dL (0.0-0.9); BILIRUBIN,TOTAL 0.7 mg/dL (0.2-2.0); BUN/CREATININE RATIO 15.23; CREATININE SERUM 2.1 mg/dL (0.6-1.4); GLOM FILT RATE Estimated 20.6 mL/min (>60); POTASSIUM 4.1 mmol/L (3.5-5.1)
[2016-12-04 01:27] LABS: CALCIUM SERUM 5.7 mg/dL (8.4-10.2)
[2016-12-04 01:45] LABS: PLATELET ESTIMATE NORMAL (NORMAL)
[2016-12-04 01:46] LABS: MICROCYTOSIS MOD; POLYCHROMASIA SL
[2016-12-04 01:51] LABS: URINE SOURCE CLEAN CATCH
[2016-12-04 01:55] LABS: URINE APPEARANCE TURBID; URINE BILIRUBIN NEG (NEG); URINE BLOOD TRACE (NEG); URINE COLOR DK YELLOW; URINE GLUCOSE NEG (NEG); URINE KETONE NEG (NEG); URINE LEUKOCYTE ESTERASE 3+ (NEG); URINE NITRATE NEG (NEG); URINE PROTEIN NEG (NEG); URINE SPECIFIC GRAVITY 1.017 (1.003-1.035); URINE UROBILINOGEN 0.2 MG/DL (NEG)
[2016-12-04 01:58] LABS: CULTURE INDICATED? YES; URINE BACTERIA AUWI 4+ (NEGATIVE); URINE SQUAMOUS EPITHELIAL CELL NONE SEEN /[HPF]; UWBCS1 AUWI INNUM (0-5)
[2016-12-04 14:55] LABS: PARTIAL THROMBOPLASTIN TIME 29.2 SECONDS (23.5-31.3); PROTHROMBIN TIME (PATIENT) 10.1 SECONDS (9.6-11.5)
[2016-12-04 15:08] LABS: ALBUMIN SERUM 2.3 g/dL (3.5-5.0); BILIRUBIN,TOTAL 0.7 mg/dL (0.2-2.0); BUN/CREATININE RATIO 17.14; CALCIUM SERUM 6.8 mg/dL (8.4-10.2); CREATININE SERUM 2.1 mg/dL (0.6-1.4); GLOM FILT RATE Estimated 20.6 mL/min (>60); POTASSIUM 4.3 mmol/L (3.5-5.1); PROTEIN TOTAL SERUM 5.5 g/dL (6.0-8.3)
[2016-12-05 08:43] LABS: BASOPHIL% 0.7 % (0-2.5); EOSINOPHIL# 0.1 X10e3 (0-0.7); EOSINOPHIL% 1.5 % (0.0-7.0); HEMATOCRIT 36.8 % (35.0-45.0); HEMOGLOBIN 11.4 gm/dL (12.0-16.0); LYMPHOCYTE# 3.6 X10e3 (1.0-3.5); LYMPHOCYTE% 51.8 % (17.0-45.0); MEAN CELL VOLUME 93.8 FL (83-96); MEAN CORPUSCULAR HEMOGLOBIN 29.1 PG (28-34); MEAN PLATELET VOLUME 9.7 FL (6.5-11.5); MONOCYTE# 0.5 X10e3 (0-1.0); MONOCYTE% 6.7 % (3.0-12.0); NEUTROPHIL# 2.7 X10e3 (1.5-7.1); NEUTROPHIL% 39.3 % (40-75); PLATELET COUNT 197 X10e3 (140-420); RED BLOOD COUNT 3.92 X10e (3.90-5.30); WHITE BLOOD COUNT 6.9 X10e3 (4.0-10.5)
[2016-12-05 08:45] LABS: DIFF IND NO
[2016-12-05 09:03] LABS: CALCIUM SERUM 7.6 mg/dL (8.4-10.2); GLOM FILT RATE Estimated 21.9 mL/min (>60); POTASSIUM 4.3 mmol/L (3.5-5.1)
[2016-12-06] MEDS ORDERED: CENTRUM COMPLE1 EACH PO (03:05)
[2016-12-06] MEDS ORDERED: FLORASTOR PO (03:07)
[2016-12-06] MEDS ORDERED: OS-CAL 500 + D500 MG PO (03:08)
[2016-12-06] MEDS ORDERED: HYDROXYZINE HCL10 MG PO (03:09)
[2016-12-06] MEDS ORDERED: OXYCODONE HCL5 MG PO (03:11)
[2016-12-06] MEDS ORDERED: IMODIUM2 MG PO (03:14)
[2016-12-06 05:29] LABS: BASOPHIL% 0.7 % (0-2.5); EOSINOPHIL# 0.2 X10e3 (0-0.7); EOSINOPHIL% 2.4 % (0.0-7.0); HEMATOCRIT 38.1 % (35.0-45.0); LYMPHOCYTE% 46.1 % (17.0-45.0); MEAN CELL VOLUME 92.3 FL (83-96); MEAN CORPUSCULAR HGB CONC 31.4 g/dL (30-36); MEAN PLATELET VOLUME 9.6 FL (6.5-11.5); MONOCYTE# 0.5 X10e3 (0-1.0); MONOCYTE% 7.5 % (3.0-12.0); NEUTROPHIL# 2.9 X10e3 (1.5-7.1); NEUTROPHIL% 43.3 % (40-75); PLATELET COUNT 193 X10e3 (140-420); RED BLOOD COUNT 4.13 X10e (3.90-5.30); RED CELL DISTRIBUTION WIDTH 20.3 % (11.0-15.5); WHITE BLOOD COUNT 6.6 X10e3 (4.0-10.5)
[2016-12-06 05:33] LABS: DIFF IND YES
[2016-12-06 06:14] LABS: CALCIUM SERUM 7.6 mg/dL (8.4-10.2); CREATININE SERUM 1.8 mg/dL (0.6-1.4); GLOM FILT RATE Estimated 24.9 mL/min (>60); POTASSIUM 4.3 mmol/L (3.5-5.1)
[2016-12-06 06:49] LABS: PLATELET ESTIMATE NORMAL (NORMAL)
[2016-12-06 06:50] LABS: ANISOCYTOSIS MOD; POIKILOCYTOSIS SL
[2016-12-07 05:40] LABS: HEMATOCRIT 34.7 % (35.0-45.0); HEMOGLOBIN 11.3 gm/dL (12.0-16.0); MEAN CELL VOLUME 91.8 FL (83-96); MEAN CORPUSCULAR HEMOGLOBIN 29.9 PG (28-34); MEAN CORPUSCULAR HGB CONC 32.6 g/dL (30-36); MEAN PLATELET VOLUME 9.5 FL (6.5-11.5); RED BLOOD COUNT 3.78 X10e (3.90-5.30); RED CELL DISTRIBUTION WIDTH 20.7 % (11.0-15.5); WHITE BLOOD COUNT 6.1 X10e3 (4.0-10.5)
[2016-12-07 06:43] LABS: BUN/CREATININE RATIO 20.58; CALCIUM SERUM 7.6 mg/dL (8.4-10.2); CREATININE SERUM 1.7 mg/dL (0.6-1.4); GLOM FILT RATE Estimated 26.7 mL/min (>60); POTASSIUM 3.9 mmol/L (3.5-5.1)
[2016-12-09 06:15] LABS: HEMATOCRIT 37.4 % (35.0-45.0); HEMOGLOBIN 11.8 gm/dL (12.0-16.0); MEAN CELL VOLUME 89.6 FL (83-96); MEAN CORPUSCULAR HEMOGLOBIN 28.3 PG (28-34); MEAN CORPUSCULAR HGB CONC 31.6 g/dL (30-36); RED BLOOD COUNT 4.17 X10e (3.90-5.30); RED CELL DISTRIBUTION WIDTH 21.2 % (11.0-15.5); WHITE BLOOD COUNT 6.6 X10e3 (4.0-10.5)
[2016-12-09 06:43] LABS: BUN/CREATININE RATIO 19.41; CALCIUM SERUM 8.2 mg/dL (8.4-10.2); CREATININE SERUM 1.7 mg/dL (0.6-1.4); GLOM FILT RATE Estimated 26.7 mL/min (>60); POTASSIUM 3.7 mmol/L (3.5-5.1)
[2016-12-09 09:17] LABS: CALCIUM (PTHINTACT) 7.6 mg/dL (8.6-10.4)
[2016-12-10 08:33] LABS: BUN/CREATININE RATIO 19.37; CALCIUM SERUM 7.6 mg/dL (8.4-10.2); CREATININE SERUM 1.6 mg/dL (0.6-1.4); GLOM FILT RATE Estimated 28.7 mL/min (>60); POTASSIUM 4.5 mmol/L (3.5-5.1)
[2016-12-11 06:49] LABS: BUN/CREATININE RATIO 21.87; CALCIUM SERUM 7.6 mg/dL (8.4-10.2); CREATININE SERUM 1.6 mg/dL (0.6-1.4); GLOM FILT RATE Estimated 28.7 mL/min (>60)
[2016-12-11] MEDS ORDERED: TUSSIONEX PENN473 ML PO (14:59)
[2016-12-11] MEDS ORDERED: DILAUDID2 MG PO (15:17)
== END 2016-12-11 16:30 | DRG 643 ==
LOC: CED 23:17 → CEDOF 12-04 02:35 → C5C 12-05 19:46
PROVIDERS: Emergency Medicine; Family Medicine; Internal Medicine Nephrology
PROC: 02HV33Z Insertion of Infusion Device into Superior Vena Cava, Percutaneous Approach (ICD-10-PCS; principal; 2016-12-06)
PROC: B518YZA Fluoroscopy of Superior Vena Cava using Other Contrast, Guidance (ICD-10-PCS; 2016-12-06)
PROC: B548ZZA Ultrasonography of Superior Vena Cava, Guidance (ICD-10-PCS; 2016-12-06)
DX: E20.9 Hypoparathyroidism, unspecified (principal); J18.9 Pneumonia, unspecified organism; J90 Pleural effusion, not elsewhere classified; J96.11 Chronic respiratory failure with hypoxia; N18.4 Chronic kidney disease, stage 4 (severe); N17.9 Acute kidney failure, unspecified; F03.90 Unspecified dementia, unspecified severity, without behavioral disturbance, psychotic disturbance, mood disturbance, and anxiety; J44.0 Chronic obstructive pulmonary disease with (acute) lower respiratory infection; N39.0 Urinary tract infection, site not specified; E03.9 Hypothyroidism, unspecified; Z85.3 Personal history of malignant neoplasm of breast; I25.10 Atherosclerotic heart disease of native coronary artery without angina pectoris; I12.9 Hypertensive chronic kidney disease with stage 1 through stage 4 chronic kidney disease, or unspecified chronic kidney disease; G25.0 Essential tremor; Z86.73 Personal history of transient ischemic attack (TIA), and cerebral infarction without residual deficits; Z90.710 Acquired absence of both cervix and uterus; Z90.49 Acquired absence of other specified parts of digestive tract; I34.0 Nonrheumatic mitral (valve) insufficiency; I65.01 Occlusion and stenosis of right vertebral artery; J44.9 Chronic obstructive pulmonary disease, unspecified; I48.2 Chronic atrial fibrillation; D64.9 Anemia, unspecified; E55.9 Vitamin D deficiency, unspecified; F41.9 Anxiety disorder, unspecified; J20.9 Acute bronchitis, unspecified; I87.2 Venous insufficiency (chronic) (peripheral); R91.1 Solitary pulmonary nodule; E87.6 Hypokalemia; B96.20 Unspecified Escherichia coli [E. coli] as the cause of diseases classified elsewhere
CPT/HCPCS: 36415; 51701; 71010; 71020; 71250; 76937; 77001; 80048; 80053; 80076; 81003; 82306; 82308; 82310; 82330; 82553; 83880; 83970; 84100; 84484; 85025; 85027; 85610; 85730; 87086; 87088; 87186; 87493; 87804; 93005; 94640; 94760; 99285; C1751; J0610; J0696; J2185